=== PATIENT | female | born 1950 | race African-American/Black ===

== ENCOUNTER 2016-08-22 20:38 | Emergency (ER) | payer MEDICAID ==
[~2016-08-22] VITALS: Ht 162.6 cm; Wt 38.6 kg
[~2016-08-22 20:38] MED LIST: CIPRO500 MG PO; DILANTIN100 MG ORAL; ECOTRIN325 MG ORAL; HYDROCHLOROTH12.5 MG ORAL; KEPPRA LIQ100 MG/1 M NG; LEVETIRACETAM500 MG ORAL; MACROBID100 MG ORAL; METFORMIN HCL500 M1 ORAL; PHENYTOIN SODI100 MG PO; PHENYTOIN100 MG/4 M ORAL; POTASSIUM CHLO20 ME2 ORAL; PRO-AMATINE10 MG ORAL; UNOBMED
[2016-08-22] MEDS ORDERED: MEGESTROL ACETA20 MG ORAL (20:49)
[2016-08-22] MEDS ORDERED: LEVETIRACETAM250 MG PO (20:49)
[2016-08-22 20:53] VITALS: BP 135/95
--- NOTE | 2016-08-22 21:08 | Emergency Room Report ---
History of Present Illness General Chief Complaint: Syncope Source: EMS, Caregiver Present Illness HPI Patient presents with complaints of syncope with possible seizure activity Patient herself has developmental delay History present illness is limited secondary to that At this time denies any chest pain Denies any headache visual changes denies any back or flank pain denies any abdominal pain Patient is taking Dilantin however it is not clear of the patient's compliance No reports of any fevers Patient's family her reports seeing the patient have an initial syncopal episode After sitting the patient up, patient appeared to have another lapse of consciousness followed by questionable seizure activity Allergies: Coded Allergies: VANCOMYCIN (Verified Allergy, Intermediate, Hives, 10/31/15) SWELLING, ITCHING TOMATO (Verified Allergy, Unknown, 08/20/13) Patient History Limited by: medical condition Past Medical History: see triage record Pertinent Family History: none Last Menstrual Period: NONE Now: No Reviewed Nursing Documentation: PMH: Agreed, PSxH: Agreed Nursing Documentation-PMH Hx Cardiac Problems: Yes Hx Hypertension: Yes Hx Diabetes: Yes Hx Cancer: No Hx Gastrointestinal Problems: No History Of Psychiatric Problem: Yes - DEMENTIA, "MENTAL RETARDATION" Hx Neurological Problems: Yes - mental retardation Hx Seizures: Yes Hx Memory Loss: Yes Hx Syncope: Yes Review of Systems All Other Systems: limited - Other than the ones mentioned in the history of present illness all others are reviewed however they do stay limited due to the patient's mental status Physical Exam Vital Signs Date Time Temp Pulse Resp B/P Pulse Ox O2 Delivery O2 Flow Rate FiO2 08/22/16 20:43 97.0 87 18 135/95 99 Room Air Sp02 EP Interpretation: reviewed, normal General Appearance: no apparent distress Head: normocephalic, atraumatic Eyes: bilateral eye EOMI, bilateral eye PERRL ENT: hearing grossly normal, normal pharynx Neck: supple, thyroid normal Respiratory: lungs clear, normal breath sounds Cardiovascular #1: regular rate, rhythm, no edema Gastrointestinal: non tender, soft, no mass Genitourinary: no CVA tenderness Musculoskeletal: other - Deficit of the right upper extremity, hand flexed position Neurologic: alert, responsive Skin: normal color, no rash Lymphatic: no adenopathy Medical Decision Making Diagnostic Impression: Primary Impression: Syncope Additional Impressions: Syncopal seizure Developmental delay ER Course Patient is a fairly complex patient with multiple differential to consideration including but not limited to cardiac cardiopulmonary , intracranial and vascular emergencies Patient's CT head was negative Blood work reveals mildly subtherapeutic Dilantin level Patient also shows positive UTI These are addressed acutely in the emergency room Patient has remained seizure-free at this time secondary to insurance purposes is transferred for further inpatient care Labs Test 08/22/16 20:49 08/22/16 22:00 White Blood Count 5.3 K/UL (4.8-10.8) Red Blood Count 5.32 M/UL (4.20-5.40) Hemoglobin 17.1 G/DL (12.0-16.0) Hematocrit 48.4 % (37.0-47.0) Mean Corpuscular Volume 91 FL (80-99) Mean Corpuscular Hemoglobin 32.2 PG (27.0-31.0) Mean Corpuscular Hemoglobin Concent 35.4 G/DL (32.0-36.0) Red Cell Distribution Width 12.2 % (11.6-14.8) Platelet Count 176 K/UL (150-450) Mean Platelet Volume 7.6 FL (6.5-10.1) Neutrophils (%) (Auto) 57.1 % (45.0-75.0) Lymphocytes (%) (Auto) 33.8 % (20.0-45.0) Monocytes (%) (Auto) 6.3 % (1.0-10.0) Eosinophils (%) (Auto) 2.5 % (0.0-3.0) Basophils (%) (Auto) 0.4 % (0.0-2.0) Sodium Level 138 mEQ/L (135-145) Potassium Level 3.9 mEQ/L (3.4-4.9) Chloride Level 98 mEQ/L (98-107) Carbon Dioxide Level 26 mEQ/L (20-30) Anion Gap 14 (5-15) Blood Urea Nitrogen 16 mg/dL (7-23) Creatinine 0.9 mg/dL (0.5-0.9) Estimat Glomerular Filtration Rate > 60 mL/min (>60) Glucose Level 154 mg/dL (74-106) Calcium Level 9.4 mg/dL (8.6-10.2) Total Bilirubin < 0.2 mg/dL (0.0-1.2) Aspartate Amino Transf (AST/SGOT) 22 U/L (5-40) Alanine Aminotransferase (ALT/SGPT) 18 U/L (3-33) Alkaline Phosphatase 119 U/L (35-104) Total Creatine Kinase 56 U/L (26-140) Creatine Kinase MB < 1.5 ng/mL (< 3.8) Creatine Kinase MB Relative Index Troponin I < 0.30 ng/mL (<=0.30) Total Protein 7.9 g/dL (6.6-8.7) Albumin 4.3 g/dL (3.5-5.2) Globulin 3.6 g/dL Albumin/Globulin Ratio 1.1 (1.0-2.7) Phenytoin (Dilantin) Level 9.4 ug/mL (10-20) Urine Color Pale yellow Urine Appearance Slightly cloudy Urine pH 6 (4.5-8.0) Urine Specific [place] 1.010 (1.005-1.035) Urine Protein 1+ (NEGATIVE) Urine Glucose (UA) Negative (NEGATIVE) Urine Ketones Negative (NEGATIVE) Urine Occult Blood 2+ (NEGATIVE) Urine Nitrite Negative (NEGATIVE) Urine Bilirubin Negative (NEGATIVE) Urine Urobilinogen Normal MG/DL (0.0-1.0) Urine Leukocyte Esterase 3+ (NEGATIVE) Urine RBC 2-4 /HPF (0 - 2) Urine WBC 5-10 /HPF (0 - 2) Urine Squamous Epithelial Cells Few /LPF (NONE/OCC) Urine Bacteria Many /HPF (NONE) Urine Opiates Screen Negative (NEGATIVE) Urine Barbiturates Screen Negative (NEGATIVE) Phencyclidine (PCP) Screen Negative (NEGATIVE) Urine Amphetamines Screen Negative (NEGATIVE) Urine Benzodiazepines Screen Negative (NEGATIVE) Urine Cocaine Screen Negative (NEGATIVE) Urine Marijuana (THC) Screen Negative (NEGATIVE) Rhythm Strip Diag. Results EP Interpretation: yes Rate: 66 Rhythm: NSR, no PVC's, no ectopy Chest X-Ray Diagnostic Results EP Interpretation: Yes Findings: no consolidation, no effusion, no pneumothorax Number of Views: 1 CT/MRI/US Diagnostic Results CT/MRI/US Diagnostic Results : Impression CT head no acute disease Last Vital Signs Date Time Temp Pulse Resp B/P Pulse Ox O2 Delivery O2 Flow Rate FiO2 08/22/16 20:53 97.0 18 135/95 99 Room Air 08/22/16 20:43 87 Status: improved Disposition: XFER SHT-COUNTS INCLUDE 234 BEDS AT THE [facility] Condition: Improved LIEN ARANGO D.O. August 22, 2016 21:08
[2016-08-22 21:22] LABS: BASOPHILS % (AUTO) 0.4 % (0.0-2.0); EOSINOPHILS % (AUTO) 2.5 % (0.0-3.0); LYMPHOCYTES % (AUTO) 33.8 % (20.0-45.0); MEAN CORPUSCULAR HEMOGLOBIN 32.2 PG (27.0-31.0); MEAN CORPUSCULAR HGB CONC 35.4 G/DL (32.0-36.0); MEAN CORPUSCULAR VOLUME 91 FL (80-99); MEAN PLATELET VOLUME 7.6 FL (6.5-10.1); MONOCYTES % (AUTO) 6.3 % (1.0-10.0); NEUTROPHILS % (AUTO) 57.1 % (45.0-75.0); PLATELET COUNT 176 K/UL (150-450); RED BLOOD COUNT 5.32 M/UL (4.20-5.40); RED CELL DISTRIBUTION WIDTH 12.2 % (11.6-14.8); WHITE BLOOD COUNT 5.3 K/UL (4.8-10.8)
[2016-08-22 21:33] LABS: TROPONIN I < 0.30 ng/mL (<=0.30)
[2016-08-22 21:36] LABS: ALANINE AMINOTRANSFERASE 18 U/L (3-33); ALBUMIN/GLOBULIN RATIO 1.1 (1.0-2.7); ANION GAP 14 (5-15); ASPARTATE AMINO TRANSFERASE 22 U/L (5-40); CALCIUM 9.4 mg/dL (8.6-10.2); CARBON DIOXIDE 26 mEQ/L (20-30); CHLORIDE 98 mEQ/L (98-107); CREATININE 0.9 mg/dL (0.5-0.9); GLOMERULAR FILTRATION RATE > 60 mL/min (>60); HEMOLYSIS 2; POTASSIUM 3.9 mEQ/L (3.4-4.9); SODIUM 138 mEQ/L (135-145); TOTAL PROTEIN 7.9 g/dL (6.6-8.7)
[2016-08-22 21:46] LABS: CKMB < 1.5 ng/mL (< 3.8)
[2016-08-22 22:25] LABS: APPEARANCE,URINE SLIGHTLY CLOUDY; KETONES,URINE NEGATIVE (NEGATIVE); LEUKOCYTE ESTERASE ,URINE 3+ (NEGATIVE); NITRITE,URINE NEGATIVE (NEGATIVE); PH,URINE 6 (4.5-8.0); PROTEIN,URINE 1+ (NEGATIVE); UROBILINOGEN,URINE NORMAL MG/DL (0.0-1.0)
[2016-08-22] MEDS ORDERED: Phenytoin 250mg/5ml vial ONE (22:27)
[2016-08-22] MEDS ORDERED: Phenytoin 500 MG in NS 110 ML IVPB ONE (22:30)
[2016-08-22 22:39] VITALS: BP 137/78
[2016-08-22 22:51] LABS: BACTERIA,URINE MANY /HPF; SQUAMOUS EPITHELIAL CELL,UR FEW /LPF (NONE/OCC)
[2016-08-22] MEDS ORDERED: cefTRIAXone 1 GM in NS 55 ML IVPB ONE (23:00)
[2016-08-23 00:54] VITALS: BP 93/64
[2016-08-23 01:23] VITALS: BP 93/64
--- NOTE | 2016-08-23 09:24 | Diagnostic Imaging Report ---
Indications: Cephalgia, altered mental status Technique: Continuous helical CT imaging of the brain was performed with automatic exposure control on a Siemens sensation [address] scanner. Axial and coronal images were reconstructed at 5 mm slice thickness and interval. CTDI volume(s): 70 mGy Total DLP: 1383 mGy-cm Findings: Comparison: 09/26/15 Mild chronic microvascular ischemic changes in the bilateral cerebral periventricular white matter, diffuse atrophy are unchanged.. No evidence of mass or hemorrhage, other attenuation abnormality, mass effect, midline shift, hydrocephalus or increased intracranial pressure. Bone window images are unremarkable. Visualized paranasal sinuses and mastoid air cells are clear. IMPRESSION: No evidence of acute intracranial pathology, unchanged Stable chronic changes as described. Written preliminary report placed in PACS 08/22/[address] scanner at [facility] is accredited by the [employer] and the scans are performed using protocols designed to limit radiation exposure to as low as reasonably achievable to attain images of sufficient resolution adequate for diagnostic evaluation.
--- NOTE | 2016-08-23 09:26 | Diagnostic Imaging Report ---
Indications: Syncope Technique: Portable AP chest Findings: Comparison: 10/28/15 Cardiac silhouette remains normal in size. Central pulmonary as remain prominent. Peripheral vasculature remains within normal limits. Top of right lung apex excluded from image. Visualized portions of lungs and pleura remain clear. Mild elongation of the aortic arch is unchanged. IMPRESSION: No evidence of acute disease, with limitation as described, unchanged Stable chronic changes as described
== END 2016-08-23 01:30 | disposition short-term general hospital (02) ==
LOC: EDBD 20:38 → EMR 21:09
DX: R55 Syncope and collapse (principal); R62.50 Unspecified lack of expected normal physiological development in childhood; Z88.1 Allergy status to other antibiotic agents; Z86.79 Personal history of other diseases of the circulatory system; I10 Essential (primary) hypertension; F03.90 Unspecified dementia, unspecified severity, without behavioral disturbance, psychotic disturbance, mood disturbance, and anxiety; F79 Unspecified intellectual disabilities; R41.3 Other amnesia; R56.9 Unspecified convulsions
CPT/HCPCS: 36415; 70450; 71010; 80053; 80185; 80300; 81003; 82550; 82553; 84484; 85025; 87086; 87181; 93005; 96360; 96361; 99284; J0696; J1165

== ENCOUNTER 2017-09-04 21:54 | Inpatient (IN) | payer MEDICAID ==
[~2017-09-04] VITALS: Ht 160 cm; Wt 54.4 kg
[~2017-09-04 21:54] MED LIST changes: +CIPROFLOXACIN750 MG ORAL; +HYDROCHLOROTH12.5 M2 ORAL; +KEPPRA500 M3 ORAL; +LEVETIRACETAM250 MG PO; +MEGESTROL ACETA20 MG ORAL; +NITROFURANTOIN100 MG PO; +NOVOLOG100 UNITS1 SUBQ
[2017-09-04] MEDS ORDERED: PHENERGAN SUPP25 MG PO (21:57)
[2017-09-04] MEDS ORDERED: Cefepime HCl 1 GM in NS 55 ML IV SCH (22:15)
[2017-09-04] MEDS ORDERED: levETIRAcetam 500mg/NS100ml 100 ML IVPB ONE (22:15)
[2017-09-04 22:23] LABS: ANION GAP 7 mmol/L (5-15); BASOPHILS % (AUTO) 1.1 % (0.0-2.0); BLOOD UREA NITROGEN 11 mg/dL (7-18); CALCIUM 8.2 MG/DL (8.5-10.1); CARBON DIOXIDE 27 MMOL/L (21-32); CHLORIDE 103 MMOL/L (98-107); CREATININE 0.9 MG/DL (0.55-1.30); EOSINOPHILS % (AUTO) 2.3 % (0.0-3.0); HEMATOCRIT 42.2 % (37.0-47.0); HEMOGLOBIN 14.6 G/DL (12.0-16.0); MEAN CORPUSCULAR VOLUME 89 FL (80-99); MONOCYTES % (AUTO) 11.9 % (1.0-10.0); NEUTROPHILS % (AUTO) 64.6 % (45.0-75.0); PLATELET COUNT 156 K/UL (150-450); POTASSIUM 3.9 MMOL/L (3.5-5.1); RED BLOOD COUNT 4.74 M/UL (4.20-5.40); RED CELL DISTRIBUTION WIDTH 11.8 % (11.6-14.8); SODIUM 137 MMOL/L (136-145)
[2017-09-04 22:53] LABS: ASPARTATE AMINO TRANSFERASE 36 U/L (15-37); BILIRUBIN,TOTAL 0.3 MG/DL (0.2-1.0)
[2017-09-04 22:54] LABS: ALANINE AMINOTRANSFERASE 38 U/L (12-78); ALBUMIN 3.2 G/DL (3.4-5.0); ALBUMIN/GLOBULIN RATIO 0.8 (1.0-2.7); ALKALINE PHOSPHATASE 108 U/L (46-116); CKMB 0.5 NG/ML (0.0-3.6); CREATINE KINASE 151 U/L (26-140)
[2017-09-04 23:46] LABS: APPEARANCE,URINE CLEAR; BILIRUBIN, URINE NEGATIVE (NEGATIVE); COLOR,URINE PALE YELLOW; GLUCOSE, URINE (UA) NEGATIVE (NEGATIVE); KETONES,URINE NEGATIVE (NEGATIVE); LEUKOCYTE ESTERASE ,URINE 1+ (NEGATIVE); NITRITE,URINE NEGATIVE (NEGATIVE); PH,URINE 7 (4.5-8.0); PROTEIN,URINE NEGATIVE (NEGATIVE); UROBILINOGEN,URINE NORMAL MG/DL (0.0-1.0)
[2017-09-05] VITALS (7 sets, daily range): BP systolic 102–129; BP diastolic 67–81
--- NOTE | 2017-09-05 00:10 | Emergency Room Report ---
History of Present Illness General Chief Complaint: Seizure Source: Patient Present Illness HPI Patient is a 66-year-old female brought in by EMS after witnessed seizure. Patient prior history of seizure disorder. Patient had reportedly been having seizures since a child. The patient was noted to be chronic developmental delayed. Patient prior mental retardation history. The patient normally has petit mal seizures however today she had a grand mal seizure. Last one was approximately 6 months ago. The patient recent ICU admission for sepsis. The patient is normally ambulatory with assistance. Allergies: Coded Allergies: VANCOMYCIN (Verified Allergy, Intermediate, Hives, 10/31/15) SWELLING, ITCHING TOMATO (Verified Allergy, Unknown, 08/20/13) Patient History Past Medical History: see triage record Reviewed Nursing Documentation: PMH: Agreed; PSxH: Agreed Nursing Documentation-PMH Past Medical History: No History, Except For Hx Cardiac Problems: Yes Hx Hypertension: Yes Hx Diabetes: Yes Hx Cancer: No Hx Gastrointestinal Problems: No Hx Neurological Problems: Yes - mental retardation Hx Seizures: Yes Hx Memory Loss: Yes Hx Syncope: Yes Review of Systems All Other Systems: limited - by mental status Physical Exam Vital Signs Date Time Temp Pulse Resp B/P (MAP) Pulse Ox O2 Delivery O2 Flow Rate FiO2 09/04/17 21:48 119 14 116/68 98 Room Air 09/04/17 23:02 101.8 General Appearance: no apparent distress, alert, thin, Chronically Ill ENT: dry mucus membranes Neck: limited range of motion Respiratory: lungs clear, normal breath sounds, no rhonchi Cardiovascular #1: no edema, tachycardia Gastrointestinal: non tender, soft Musculoskeletal: decreased range of motion Neurologic: alert, motor weakness Skin: normal color, no rash Medical Decision Making Diagnostic Impression: Primary Impression: Development delay Additional Impressions: Sepsis Seizure disorder, generalized convulsive, intractable Subtherapeutic serum dilantin level ER Course Patient presented for seizure. Differential diagnosis included urinary infection, cysticercosis, electrolyte abnormality, mass lesion, or cranial hemorrhage.Because of complexity of patient's case laboratory testing and imaging studies were ordered. The patient was noted to have subtherapeutic Dilantin level. The patient was given IV Lasix and IV fluids due to possible sepsis. Urinalysis showed evidence of possible urinary infection. Dr. Imtiaz Arroyo was contacted for inpatient management Labs Test 09/04/17 21:59 6/6/18 23:30 White Blood Count 4.0 K/UL (4.8-10.8) Red Blood Count 4.74 M/UL (4.20-5.40) Hemoglobin 14.6 G/DL (12.0-16.0) Hematocrit 42.2 % (37.0-47.0) Mean Corpuscular Volume 89 FL (80-99) Mean Corpuscular Hemoglobin 30.8 PG (27.0-31.0) Mean Corpuscular Hemoglobin Concent 34.7 G/DL (32.0-36.0) Red Cell Distribution Width 11.8 % (11.6-14.8) Platelet Count 156 K/UL (150-450) Mean Platelet Volume 7.9 FL (6.5-10.1) Neutrophils (%) (Auto) 64.6 % (45.0-75.0) Lymphocytes (%) (Auto) 20.0 % (20.0-45.0) Monocytes (%) (Auto) 11.9 % (1.0-10.0) Eosinophils (%) (Auto) 2.3 % (0.0-3.0) Basophils (%) (Auto) 1.1 % (0.0-2.0) Sodium Level 137 MMOL/L (136-145) Potassium Level 3.9 MMOL/L (3.5-5.1) Chloride Level 103 MMOL/L (98-107) Carbon Dioxide Level 27 MMOL/L (21-32) Anion Gap 7 mmol/L (5-15) Blood Urea Nitrogen 11 mg/dL (7-18) Creatinine 0.9 MG/DL (0.55-1.30) Estimat Glomerular Filtration Rate > 60 mL/min (>60) Glucose Level 120 MG/DL (74-106) Lactic Acid Level 1.00 mmol/L (0.4-2.0) Calcium Level 8.2 MG/DL (8.5-10.1) Total Bilirubin 0.3 MG/DL (0.2-1.0) Aspartate Amino Transf (AST/SGOT) 36 U/L (15-37) Alanine Aminotransferase (ALT/SGPT) 38 U/L (12-78) Alkaline Phosphatase 108 U/L (46-116) Total Creatine Kinase 151 U/L (26-140) Creatine Kinase MB 0.5 NG/ML (0.0-3.6) Creatine Kinase MB Relative Index 0.3 Troponin I 0.003 ng/mL (0.000-0.056) Total Protein 7.3 G/DL (6.4-8.2) Albumin 3.2 G/DL (3.4-5.0) Globulin 4.1 g/dL Albumin/Globulin Ratio 0.8 (1.0-2.7) Phenytoin (Dilantin) Level 6.2 ug/mL (10-20) Phenobarbital Level < 1.0 ug/mL (15-40) Urine Color Pale yellow Urine Appearance Clear Urine pH 7 (4.5-8.0) Urine Specific [place] 1.005 (1.005-1.035) Urine Protein Negative (NEGATIVE) Urine Glucose (UA) Negative (NEGATIVE) Urine Ketones Negative (NEGATIVE) Urine Occult Blood Negative (NEGATIVE) Urine Nitrite Negative (NEGATIVE) Urine Bilirubin Negative (NEGATIVE) Urine Urobilinogen Normal MG/DL (0.0-1.0) Urine Leukocyte Esterase 1+ (NEGATIVE) Urine RBC 0 /HPF (0 - 2) Urine WBC 2-4 /HPF (0 - 2) Urine Squamous Epithelial Cells Few /LPF (NONE/OCC) Urine Bacteria Few /HPF (NONE) EKG Diagnostic Results Rate: tachycardiac Rhythm: NSR ST Segments: no acute changes Last Vital Signs Date Time Temp Pulse Resp B/P (MAP) Pulse Ox O2 Delivery O2 Flow Rate FiO2 09/04/17 23:02 101.8 09/04/17 22:16 119 14 Room Air 09/04/17 21:48 116/68 98 Status: unchanged Disposition: ADMITTED INPATIENT Condition: Serious Referrals: [facility],REFERRING (PCP) Rommel Crawford MD Sep 05, 2017 00:10
[2017-09-05] MEDS: NovoLOG Insulin Flexpen SUBQ SCH ×4 (06:30→21:00)
[2017-09-05] MEDS ORDERED: Norco 5mg/325mg tab ORAL PRN (06:45)
[2017-09-05] MEDS ORDERED: NS w/KCl 20mEq 1,000 ML IV ONE (06:45)
[2017-09-05 07:39] LABS: HEMATOCRIT 43.4 % (37.0-47.0); HEMOGLOBIN 14.9 G/DL (12.0-16.0); MEAN CORPUSCULAR VOLUME 91 FL (80-99); PLATELET COUNT 157 K/UL (150-450); RED BLOOD COUNT 4.77 M/UL (4.20-5.40); RED CELL DISTRIBUTION WIDTH 11.6 % (11.6-14.8); WHITE BLOOD COUNT 3.1 K/UL (4.8-10.8)
[2017-09-05 08:16] LABS: PHOSPHORUS 3.8 MG/DL (2.5-4.9)
--- NOTE | 2017-09-05 09:06 | Diagnostic Imaging Report ---
Indication: Shortness of breath Technique: One view of the chest Comparison: 08/22/2016 Findings: The lungs and pleural spaces are clear. Heart size is normal. The aorta is tortuous and ectatic. Again demonstrated is central bronchial wall thickening. Findings are unchanged Impression: No acute process
[2017-09-05] MEDS: Heparin 5000 units/ml inj SUBQ SCH ×2 (09:43→21:10)
--- NOTE | 2017-09-05 11:07 | Consultation ---
History of Present Illness General Date patient seen: Sep 05, 2017 Chief Complaint: Seizure Present Illness HPI 66-year-old female with prior history of seizure disorder, chronic developmental delaye brought in by EMS after witnessed seizure. The patient normally has petit mal seizures however today she had a grand mal seizure. Last one was approximately 6 months ago. Pt is admitted to telemetry for further management. Allergies: Coded Allergies: VANCOMYCIN (Verified Allergy, Intermediate, Hives, 10/31/15) SWELLING, ITCHING TOMATO (Verified Allergy, Unknown, 08/20/13) Medication History Scheduled Aspirin* (Ecotrin*), 325 MG ORAL DAILY, (Reported) Hydrochlorothiazide* (Hydrochlorothiazide*), 12.5 MG ORAL DAILY, (Reported) Hydrochlorothiazide* (Hydrochlorothiazide*), 12.5 MG ORAL DAILY, (Reported) Levetiracetam (Levetiracetam), 250 MG ORAL Q12HR Levetiracetam (Keppra), 1,000 MG NG Q12HR Levetiracetam (Levetiracetam), 250 MG PO BID, (Reported) Levetiracetam* (Levetiracetam*), 750 MG ORAL TWICE A DAY, (Reported) Metformin Hcl* (Metformin Hcl*), 500 MG ORAL TWICE A DAY, (Reported) Metformin Hcl* (Metformin Hcl*), 500 MG ORAL TWICE A DAY, (Reported) Midodrine (Midodrine HCl), 10 MG ORAL THREE TIMES A DAY Phenytoin (Phenytoin*), 100 MG ORAL TID, (Reported) Phenytoin Sodium Extended* (Dilantin*), 300 MG ORAL BEDTIME Phenytoin Sodium Extended* (Dilantin*), 300 MG ORAL BEDTIME, (Reported) Potassium Chloride (Potassium Chloride), 10 MEQ ORAL DAILY, (Reported) Scheduled PRN Promethazine HCl (Promethegan), 5 ML PO Q6H PRN for Nausea & Vomiting, (Reported ) Miscellaneous Medications Megestrol Acetate (Megestrol Acetate), 20 MG ORAL, (Reported) Unable to Obtain Medications (Unable To Obtain Meds), (Reported) Patient History Healthcare decision maker Razia caregiver Resuscitation status Advanced Directive on File No Past Medical/Surgical History Past Medical/Surgical History: (1) Seizure (2) CAD (coronary artery disease) (3) HTN (hypertension) (4) DM (diabetes mellitus) (5) Developmental delay (6) chronic partial complex seizure d/o, exacerbation Review of Systems All Other Systems: negative except mentioned in HPI Physical Exam General Appearance: WD/WN Lines, tubes and drains: peripheral HEENT: normocephalic Neck: non-tender, normal alignment Respiratory/Chest: chest wall non-tender, lungs clear Cardiovascular/Chest: normal peripheral pulses, normal rate Abdomen: normal bowel sounds Genitourinary/Rectal: normal genital exam Extremities: normal range of motion Skin Exam: normal pigmentation 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 Last 24 Hour Vital Signs Date Time Temp Pulse Resp B/P (MAP) Pulse Ox O2 Delivery O2 Flow Rate FiO2 09/05/17 04:00 81 09/05/17 04:00 97.8 80 20 102/68 100 Room Air 97.8 85 09/05/17 01:15 97.8 100 20 127/67 100 Room Air 97.8 09/05/17 00:59 100.0 14 116/68 98 Room Air 100.0 09/05/17 00:29 100.0 14 116/68 98 Room Air 100.0 09/04/17 23:02 101.8 09/04/17 22:16 119 14 Room Air 09/04/17 21:48 119 14 116/68 98 Room Air Intake and Output 09/04/17 09/05/17 19:00 07:00 Intake Total 0 ml Balance 0 ml Intake Oral 0 ml Laboratory Tests Test 09/04/17 21:59 09/04/17 23:30 09/05/17 07:30 White Blood Count 4.0 K/UL (4.8-10.8) L 3.1 K/UL (4.8-10.8) L Red Blood Count 4.74 M/UL (4.20-5.40) 4.77 M/UL (4.20-5.40) Hemoglobin 14.6 G/DL (12.0-16.0) 14.9 G/DL (12.0-16.0) Hematocrit 42.2 % (37.0-47.0) 43.4 % (37.0-47.0) Mean Corpuscular Volume 89 FL (80-99) 91 FL (80-99) Mean Corpuscular Hemoglobin 30.8 PG (27.0-31.0) 31.2 PG (27.0-31.0) H Mean Corpuscular Hemoglobin Concent 34.7 G/DL (32.0-36.0) 34.3 G/DL (32.0-36.0) Red Cell Distribution Width 11.8 % (11.6-14.8) 11.6 % (11.6-14.8) Platelet Count 156 K/UL (150-450) 157 K/UL (150-450) Mean Platelet Volume 7.9 FL (6.5-10.1) 5.7 FL (6.5-10.1) L Neutrophils (%) (Auto) 64.6 % (45.0-75.0) % (45.0-75.0) Lymphocytes (%) (Auto) 20.0 % (20.0-45.0) % (20.0-45.0) Monocytes (%) (Auto) 11.9 % (1.0-10.0) H % (1.0-10.0) Eosinophils (%) (Auto) 2.3 % (0.0-3.0) % (0.0-3.0) Basophils (%) (Auto) 1.1 % (0.0-2.0) % (0.0-2.0) Sodium Level 137 MMOL/L (136-145) Potassium Level 3.9 MMOL/L (3.5-5.1) Chloride Level 103 MMOL/L (98-107) Carbon Dioxide Level 27 MMOL/L (21-32) Anion Gap 7 mmol/L (5-15) Blood Urea Nitrogen 11 mg/dL (7-18) Creatinine 0.9 MG/DL (0.55-1.30) Estimat Glomerular Filtration Rate > 60 mL/min (>60) Glucose Level 120 MG/DL (74-106) H Lactic Acid Level 1.00 mmol/L (0.4-2.0) Calcium Level 8.2 MG/DL (8.5-10.1) L Total Bilirubin 0.3 MG/DL (0.2-1.0) Aspartate Amino Transf (AST/SGOT) 36 U/L (15-37) Alanine Aminotransferase (ALT/SGPT) 38 U/L (12-78) Alkaline Phosphatase 108 U/L (46-116) Total Creatine Kinase 151 U/L (26-140) H Creatine Kinase MB 0.5 NG/ML (0.0-3.6) Creatine Kinase MB Relative Index 0.3 Troponin I 0.003 ng/mL (0.000-0.056) Total Protein 7.3 G/DL (6.4-8.2) Albumin 3.2 G/DL (3.4-5.0) L Globulin 4.1 g/dL Albumin/Globulin Ratio 0.8 (1.0-2.7) L Phenytoin (Dilantin) Level 6.2 ug/mL (10-20) L Phenobarbital Level < 1.0 ug/mL (15-40) L Urine Color Pale yellow Urine Appearance Clear Urine pH 7 (4.5-8.0) Urine Specific [place] 1.005 (1.005-1.035) Urine Protein Negative (NEGATIVE) Urine Glucose (UA) Negative (NEGATIVE) Urine Ketones Negative (NEGATIVE) Urine Occult Blood Negative (NEGATIVE) Urine Nitrite Negative (NEGATIVE) Urine Bilirubin Negative (NEGATIVE) Urine Urobilinogen Normal MG/DL (0.0-1.0) Urine Leukocyte Esterase 1+ (NEGATIVE) H Urine RBC 0 /HPF (0 - 2) Urine WBC 2-4 /HPF (0 - 2) Urine Squamous Epithelial Cells Few /LPF (NONE/OCC) Urine Bacteria Few /HPF (NONE) Differential Total Cells Counted 100 Neutrophils % (Manual) 65 % (45-75) Lymphocytes % (Manual) 27 % (20-45) Monocytes % (Manual) 8 % (1-10) Eosinophils % (Manual) 0 % (0-3) Basophils % (Manual) 0 % (0-2) Band Neutrophils 0 % (0-8) Platelet Estimate Adequate Platelet Morphology Normal Red Blood Cell Morphology Normal Phosphorus Level 3.8 MG/DL (2.5-4.9) Magnesium Level 1.9 MG/DL (1.8-2.4) Pro-B-Type Natriuretic Peptide 95 pg/mL (0-125) Height (Feet): 5 Height (Inches): 3.00 Weight (Pounds): 120 Medications Current Medications Medications (Trade) Dose Ordered Sig/Blanca Route PRN Reason Start Time Stop Time Status Last Admin Dose Admin Acetaminophen (Tylenol) 650 mg Q6H PRN ORAL Mild Pain/Temp > 100.5 09/05/17 06:45 10/05/17 06:44 Acetaminophen/ Hydrocodone Bitart ([place] 5/325) 1 tab Q6H PRN ORAL Severe Pain (Pain Scale 7-10) 09/05/17 06:45 09/12/17 06:44 Cefepime HCl 1 gm/ Dextrose 110 ml @ 220 mls/hr Q24H IVPB 09/05/17 23:00 09/12/17 22:59 Dextrose (Dextrose 50%) 25 ml STAT PRN IV Hypoglycemia 09/05/17 06:30 10/05/17 06:29 Dextrose (Dextrose 50%) 50 ml STAT PRN IV Hypoglycemia 09/05/17 06:30 10/05/17 06:29 Heparin Sodium (Porcine) (Heparin 5000 units/ml) 5,000 units EVERY 12 HOURS SUBQ 09/05/17 09:00 10/05/17 08:59 09/05/17 09:43 Insulin Aspart (NovoLOG) BEFORE MEALS AND HS SUBQ 09/05/17 06:30 10/05/17 06:29 Levetiracetam (Keppra) 1,000 mg Q12HR ORAL 09/05/17 09:00 10/05/17 08:59 09/05/17 09:38 Ondansetron HCl (Zofran) 4 mg Q4H PRN IVP Nausea & Vomiting 09/05/17 06:45 10/05/17 06:44 Phenytoin (Dilantin) 400 mg BEDTIME ORAL 09/05/17 21:00 10/05/17 20:59 Sodium Chloride 1,000 ml @ 75 mls/hr [id number] ONCE IV 09/05/17 06:45 09/05/17 20:04 09/05/17 09:51 Assessment/Plan Problem List: (1) Seizure disorder, generalized convulsive, intractable ICD Codes: G40.319 - Generalized idiopathic epilepsy and epileptic syndromes, intractable, without status epilepticus SNOMED: 62048252 (2) chronic partial complex seizure d/o, exacerbation (3) Developmental delay ICD Codes: R62.50 - Unspecified lack of expected normal physiological development in childhood SNOMED: 706366173 (4) DM (diabetes mellitus) ICD Codes: E11.9 - DM (diabetes mellitus) SNOMED: 35051796 (5) HTN (hypertension) ICD Codes: I10 - HTN (hypertension) SNOMED: 49340635 (6) CAD (coronary artery disease) ICD Codes: I25.10 - Atherosclerotic heart disease of [place] coronary artery without angina pectoris SNOMED: 63175557 Assessment/Plan seizure precaution neuro evaluation adjust meds sliding scale diabetic diet. Juliette Bustos MD Sep 05, 2017 11:07
--- NOTE | 2017-09-05 18:25 | History & Physical ---
History and Physical History & Physicial Dictated for Int med-Dr Arroyo no. [id number]. Tam Toscano MD Sep 05, 2017 18:25
--- NOTE | 2017-09-05 19:45 | History and Physical Report ---
DATE OF ADMISSION: 09/04/2017 CHIEF COMPLAINT: The patient is a 66-year-old, female, who presents with chief complaint of seizure. HISTORY OF PRESENT ILLNESS: The patient has a history of absence seizures. The patient herself has a history of mental retardation and is unable to contribute much to the history. Much of the history is taken from the patient's caregiver, Karen Madison, who is at the bedside. According to the patient's cousin, she had an absence seizure last evening, 09/04/2017. The patient eyes rolled back in her head. EMS was called. The patient was postictal afterwards. The patient was transported to [facility] emergency room. The patient was admitted for breakthrough seizure. PAST MEDICAL HISTORY: Significant for, 1. Absence seizure disorder. 2. Mental retardation. 3. Diabetes type 2. 4. Hypertension. PAST SURGICAL HISTORY: The patient denies. CURRENT MEDICATIONS: 1. Keppra 1000 mg one tablet p.o. twice daily. 2. Dilantin 100 mg 3 tablets p.o. at bedtime. 3. Metformin 500 mg one tablet p.o. twice daily. 4. Hydrochlorothiazide 12.5 mg p.o. daily. ALLERGIES: Vancomycin. SOCIAL HISTORY: The patient is single. The patient lives at home with her caregiver. The patient denies tobacco or alcohol use. REVIEW OF SYSTEMS: Unable to assess secondary to the patient's mental status. PHYSICAL EXAMINATION: GENERAL: The patient is a well-developed, well-nourished, female, who is nonverbal. VITAL SIGNS: Temperature low-grade fever of 100.0 degrees, respirations 14, blood pressure 116/68, and pulse 100. HEENT: Pupils equal and responsive to light and accommodation. Extraocular movements are intact. NECK: Supple without lymphadenopathy. CHEST: Lungs are clear to auscultation bilaterally without wheezes or rales. CARDIOVASCULAR: Regular rhythm and rate. S1 and S2 are normal without murmurs, rubs, or gallops. ABDOMEN: Soft, nontender, and nondistended. Positive bowel sounds. No evidence of hepatosplenomegaly. Currently, no rebound or guarding noted. EXTREMITIES: Negative for clubbing, cyanosis, or edema. RECTAL/GENITAL: Refused. NEUROLOGIC: Cranial nerves II through XII are grossly intact without focal deficits. Motor strength is 5/5 bilaterally. Deep tendon reflexes are 2+ plantar. LABORATORY AND DIAGNOSTIC DATA: WBC 4.3, hemoglobin 13.6, hematocrit 42.2 and platelets 156,000. Sodium 137, potassium 3.9, chloride 103, CO2 27, BUN 11, creatinine 0.9 and glucose 120. Dilantin level was subtherapeutic at 6.2. An initial chest x-ray was reported as no acute disease. ASSESSMENT: This is a 66-year-old, female, 1. Breakthrough seizure. 2. Postictal. 3. Diabetes type 2. 4. Hypertension. TREATMENT: 1. Seizure/postictal. A Neurology consultation has been obtained with Dr. Jun Aguilar. Restart Keppra and Dilantin as above. We will follow recommendations of Neurology. 2. Diabetes type 2. Dosages may need to be adjusted as the Dilantin was subtherapeutic. We will follow recommendations of Neurology. 3. Diabetes type 2. The patient has been placed on NovoLog sliding scale. Continue metformin as above. 4. Hypertension. Continue hydrochlorothiazide as above. Tam Toscano M.D. DR: YAKELIN JOB#: [id number] CC:
[2017-09-05] MEDS ORDERED: Phenytoin 100mg cap ORAL SCH (21:00)
[2017-09-05] MEDS ORDERED: Cefepime HCl 1 GM in D5W 55 ML IVPB SCH (23:00)
[2017-09-05] MEDS ORDERED: Cefepime HCl 1 GM in D5W 110 ML IVPB SCH (23:00)
[2017-09-06] VITALS (7 sets, daily range): BP systolic 94–146; BP diastolic 64–95
[2017-09-06] MEDS: NovoLOG Insulin Flexpen SUBQ SCH ×4 (06:30→21:46)
[2017-09-06 07:44] LABS: ANION GAP 6 mmol/L (5-15); BLOOD UREA NITROGEN 8 mg/dL (7-18); CALCIUM 8.2 MG/DL (8.5-10.1); CARBON DIOXIDE 27 MMOL/L (21-32); CHLORIDE 107 MMOL/L (98-107); CREATININE 0.7 MG/DL (0.55-1.30); POTASSIUM 3.9 MMOL/L (3.5-5.1); SODIUM 140 MMOL/L (136-145)
[2017-09-06 07:52] LABS: HEMATOCRIT 38.7 % (37.0-47.0); HEMOGLOBIN 13.5 G/DL (12.0-16.0); MEAN CORPUSCULAR VOLUME 90 FL (80-99); PLATELET COUNT 150 K/UL (150-450); RED BLOOD COUNT 4.28 M/UL (4.20-5.40); RED CELL DISTRIBUTION WIDTH 11.6 % (11.6-14.8); WHITE BLOOD COUNT 2.5 K/UL (4.8-10.8)
[2017-09-06] MEDS: Heparin 5000 units/ml inj SUBQ SCH ×2 (08:47→21:00)
--- NOTE | 2017-09-06 12:33 | Cardiology Report ---
APPROVED REPORT EKG Measurement Heart [id number] Sinus tachycardia Left axis deviation Low voltage QRS Right bundle branch block Possible Lateral infarct, age undetermined Abnormal ECG
--- NOTE | 2017-09-06 13:26 | Pulmonology Progress Note ---
Assessment/Plan Problems: (1) Fever (2) Sepsis (3) Seizure disorder, generalized convulsive, intractable (4) chronic partial complex seizure d/o, exacerbation (5) Developmental delay (6) DM (diabetes mellitus) (7) HTN (hypertension) (8) CAD (coronary artery disease) Assessment/Plan denson culture IV abx check wbc sliding scale diabetic diet ID evaluation med/surg no more seizures. Subjective ROS Limited/Unobtainable: No Interval Events: awake, comfortable Allergies: Coded Allergies: VANCOMYCIN (Verified Allergy, Intermediate, Hives, 10/31/15) SWELLING, ITCHING TOMATO (Verified Allergy, Unknown, 08/20/13) Objective Last 24 Hour Vital Signs Date Time Temp Pulse Resp B/P (MAP) Pulse Ox O2 Delivery O2 Flow Rate FiO2 09/06/17 08:00 97.7 90 18 119/75 99 Room Air 97.7 09/06/17 08:00 96 09/06/17 04:00 81 09/06/17 04:00 97.7 93 20 108/74 100 Room Air 97.7 09/06/17 00:00 100 09/06/17 00:00 98.1 97 20 117/77 97 Room Air 98.1 09/05/17 20:00 102 09/05/17 20:00 100.8 103 20 129/81 98 Room Air 100.8 09/05/17 16:00 97.5 106 20 126/72 97 Room Air 97.5 09/05/17 16:00 103 Intake and Output 09/05/17 09/06/17 19:00 07:00 Intake Total 800 ml Balance 800 ml Intake Oral 800 ml # Bowel Movements 1 1 General Appearance: cachetic HEENT: normocephalic, atraumatic Respiratory/Chest: chest wall non-tender, lungs clear Breasts: no masses Cardiovascular: normal peripheral pulses, normal rate Abdomen: normal bowel sounds, soft, non tender Genitourinary: normal external genitalia Extremities: no cyanosis Skin: no rash 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 normal Microbiology Date/Time Source Procedure Growth Status 09/04/17 22:00 Blood Blood Culture - Preliminary Resulted 09/04/17 21:49 Blood Blood Culture - Preliminary Resulted Laboratory Tests 09/06/17 07:00: White Blood Count 2.5L, Red Blood Count 4.28, Hemoglobin 13.5, Hematocrit 38.7, Mean Corpuscular Volume 90, Mean Corpuscular Hemoglobin 31.5H, Mean Corpuscular Hemoglobin Concent 34.8, Red Cell Distribution Width 11.6, Platelet Count 150, Mean Platelet Volume 7.1, Neutrophils (%) (Auto) , Lymphocytes (%) (Auto) , Monocytes (%) (Auto) , Eosinophils (%) (Auto) , Basophils (%) (Auto) , Differential Total Cells Counted 100, Neutrophils % (Manual) 42L, Lymphocytes % (Manual) 42, Monocytes % (Manual) 9, Eosinophils % (Manual) 7H, Basophils % ( Manual) 0, Band Neutrophils 0, Platelet Estimate Adequate, Platelet Morphology Normal, Anisocytosis 1+, Sodium Level 140, Potassium Level 3.9, Chloride Level 107, Carbon Dioxide Level 27, Anion Gap 6, Blood Urea Nitrogen 8, Creatinine 0.7 , Estimat Glomerular Filtration Rate > 60, Glucose Level 90, Calcium Level 8.2L , Phenytoin (Dilantin) Level 9.7L, Levetiracetam (Keppra) Level [Pending] Current Medications Medications (Trade) Dose Ordered Sig/Blanca Route PRN Reason Start Time Stop Time Status Last Admin Dose Admin Acetaminophen (Tylenol) 650 mg Q6H PRN ORAL Mild Pain/Temp > 100.5 09/05/17 06:45 10/05/17 06:44 Acetaminophen/ Hydrocodone Bitart ([place] 5/325) 1 tab Q6H PRN ORAL Severe Pain (Pain Scale 7-10) 09/05/17 06:45 09/12/17 06:44 Cefepime HCl 1 gm/ Dextrose 110 ml @ 220 mls/hr Q24H IVPB 09/05/17 23:00 09/12/17 22:59 09/05/17 23:00 Dextrose (Dextrose 50%) 25 ml STAT PRN IV Hypoglycemia 09/05/17 06:30 10/05/17 06:29 Dextrose (Dextrose 50%) 50 ml STAT PRN IV Hypoglycemia 09/05/17 06:30 10/05/17 06:29 Heparin Sodium (Porcine) (Heparin 5000 units/ml) 5,000 units EVERY 12 HOURS SUBQ 09/05/17 09:00 10/05/17 08:59 09/06/17 08:47 Insulin Aspart (NovoLOG) BEFORE MEALS AND HS SUBQ 09/05/17 06:30 10/05/17 06:29 Levetiracetam (Keppra) 1,000 mg Q12HR ORAL 09/05/17 09:00 10/05/17 08:59 09/06/17 08:46 Ondansetron HCl (Zofran) 4 mg Q4H PRN IVP Nausea & Vomiting 09/05/17 06:45 10/05/17 06:44 Phenytoin (Dilantin) 400 mg BEDTIME ORAL 09/05/17 21:00 10/05/17 20:59 09/05/17 21:05 Juliette Bustos MD Sep 06, 2017 13:26
--- NOTE | 2017-09-06 16:44 | Internal Med Progress Note ---
Subjective Date of Service: Sep 06, 2017 Physician Name Tam Toscano Attending Physician Imtiaz Arroyo MD Current Medications Medications (Trade) Dose Ordered Sig/Blanca Route PRN Reason Start Time Stop Time Status Last Admin Dose Admin Acetaminophen (Tylenol) 650 mg Q6H PRN ORAL Mild Pain/Temp > 100.5 09/05/17 06:45 10/05/17 06:44 Acetaminophen/ Hydrocodone Bitart ([place] 5/325) 1 tab Q6H PRN ORAL Severe Pain (Pain Scale 7-10) 09/05/17 06:45 09/12/17 06:44 Cefepime HCl 1 gm/ Dextrose 110 ml @ 220 mls/hr Q24H IVPB 09/05/17 23:00 09/12/17 22:59 09/05/17 23:00 Daptomycin 350 mg/ Sodium Chloride 55 ml @ 110 mls/hr Q24H IV 09/06/17 17:00 09/13/17 16:59 Dextrose (Dextrose 50%) 25 ml STAT PRN IV Hypoglycemia 09/05/17 06:30 10/05/17 06:29 Dextrose (Dextrose 50%) 50 ml STAT PRN IV Hypoglycemia 09/05/17 06:30 10/05/17 06:29 Heparin Sodium (Porcine) (Heparin 5000 units/ml) 5,000 units EVERY 12 HOURS SUBQ 09/05/17 09:00 10/05/17 08:59 09/06/17 08:47 Insulin Aspart (NovoLOG) BEFORE MEALS AND HS SUBQ 09/05/17 06:30 10/05/17 06:29 Levetiracetam (Keppra) 1,000 mg Q12HR ORAL 09/05/17 09:00 10/05/17 08:59 09/06/17 08:46 Ondansetron HCl (Zofran) 4 mg Q4H PRN IVP Nausea & Vomiting 09/05/17 06:45 10/05/17 06:44 Phenytoin (Dilantin) 400 mg BEDTIME ORAL 09/05/17 21:00 10/05/17 20:59 09/05/17 21:05 Allergies: Coded Allergies: VANCOMYCIN (Verified Allergy, Intermediate, Hives, 10/31/15) SWELLING, ITCHING TOMATO (Verified Allergy, Unknown, 08/20/13) ROS Limited/Unobtainable: Yes Constitutional: Reports: no symptoms HEENT: Reports: no symptoms Cardiovascular: Reports: no symptoms Respiratory: Reports: no symptoms Gastrointestinal/Abdominal: Reports: no symptoms Genitourinary: Reports: no symptoms Neurologic/Psychiatric: Reports: no symptoms Subjective 66 YO F admitted with seizure. Cover for Int Med-Dr Arroyo. C/O cough. Objective Last Vital Signs Date Time Temp Pulse Resp B/P (MAP) Pulse Ox O2 Delivery O2 Flow Rate FiO2 09/06/17 16:00 98.4 103 20 146/64 99 Room Air 98.4 General Appearance: WD/WN, no apparent distress, alert EENT: PERRL/EOMI, normal ENT inspection Neck: non-tender, normal alignment, supple, normal inspection Cardiovascular: normal peripheral pulses, normal rate, regular rhythm, no gallop/murmur, no JVD Respiratory/Chest: chest wall non-tender, lungs clear, normal breath sounds, no respiratory distress, no accessory muscle use Abdomen: normal bowel sounds, non tender, soft, no organomegaly, no mass Extremities: normal range of motion, non-tender 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, no motor/sensory deficits Skin: normal pigmentation, warm/dry Laboratory Tests Test 09/06/17 07:00 White Blood Count 2.5 K/UL (4.8-10.8) L Red Blood Count 4.28 M/UL (4.20-5.40) Hemoglobin 13.5 G/DL (12.0-16.0) Hematocrit 38.7 % (37.0-47.0) Mean Corpuscular Volume 90 FL (80-99) Mean Corpuscular Hemoglobin 31.5 PG (27.0-31.0) H Mean Corpuscular Hemoglobin Concent 34.8 G/DL (32.0-36.0) Red Cell Distribution Width 11.6 % (11.6-14.8) Platelet Count 150 K/UL (150-450) Mean Platelet Volume 7.1 FL (6.5-10.1) Neutrophils (%) (Auto) % (45.0-75.0) Lymphocytes (%) (Auto) % (20.0-45.0) Monocytes (%) (Auto) % (1.0-10.0) Eosinophils (%) (Auto) % (0.0-3.0) Basophils (%) (Auto) % (0.0-2.0) Differential Total Cells Counted 100 Neutrophils % (Manual) 42 % (45-75) L Lymphocytes % (Manual) 42 % (20-45) Monocytes % (Manual) 9 % (1-10) Eosinophils % (Manual) 7 % (0-3) H Basophils % (Manual) 0 % (0-2) Band Neutrophils 0 % (0-8) Platelet Estimate Adequate Platelet Morphology Normal Anisocytosis 1+ Sodium Level 140 MMOL/L (136-145) Potassium Level 3.9 MMOL/L (3.5-5.1) Chloride Level 107 MMOL/L (98-107) Carbon Dioxide Level 27 MMOL/L (21-32) Anion Gap 6 mmol/L (5-15) Blood Urea Nitrogen 8 mg/dL (7-18) Creatinine 0.7 MG/DL (0.55-1.30) Estimat Glomerular Filtration Rate > 60 mL/min (>60) Glucose Level 90 MG/DL (74-106) Calcium Level 8.2 MG/DL (8.5-10.1) L Phenytoin (Dilantin) Level 9.7 ug/mL (10-20) L Levetiracetam (Keppra) Level Pending Microbiology Date/Time Source Procedure Growth Status 09/04/17 22:00 Blood Blood Culture - Preliminary Resulted 09/04/17 21:49 Blood Blood Culture - Preliminary Resulted Intake and Output 09/05/17 09/06/17 19:00 07:00 Intake Total 800 ml Balance 800 ml Intake Oral 800 ml # Bowel Movements 1 1 Assessment/Plan Problem List: (1) Bronchitis Assessment & Plan: Continue cefepime and daptomycin per pulmonary (2) Diabetes mellitus, type II Assessment & Plan: Continue novolog sliding scale. (3) Fever Assessment & Plan: Continue cefepime and daptomycin (4) Seizures Assessment & Plan: See neurology note. Continue keppra and dilantin (5) HTN (hypertension) Status: progressing Tam Toscano MD Sep 06, 2017 16:44
[2017-09-06] MEDS ORDERED: Albuterol ud Inhalation HHN PRN (16:45)
[2017-09-06] MEDS ORDERED: DAPTOmycin 350 MG in NS 55 ML IV SCH (17:00)
[2017-09-06] MEDS: Phenytoin 100mg cap ORAL SCH (21:24)
[2017-09-06] MEDS: Cefepime HCl 1 GM in D5W 110 ML IVPB SCH (22:58)
[2017-09-07] MEDS ORDERED: Norco 5mg/325mg tab ORAL PRN (00:45)
[2017-09-07] MEDS ORDERED: Albuterol ud Inhalation HHN PRN (00:45)
[2017-09-07 04:00] VITALS: BP 105/67
[2017-09-07] MEDS: NovoLOG Insulin Flexpen SUBQ SCH ×4 (06:01→20:27)
--- NOTE | 2017-09-07 07:22 | Pulmonology Progress Note ---
Assessment/Plan Assessment/Plan ASSESSMENT breakthrough seizures with history of seizure disorder Developmental delay Acute encephalopathy secondary to breakthrough seizure likely viral infection possible acute bronchitis Hypertension Diabetes gram positive bacteremia possible sepsis PLAN OF CARE MS floor high grade bacteremia, 4/4 on empiric Dapto and Cefepime ( allergic to vanco) ID consult CXR negative, UA negative O2 HHN prn get ECHO- r/o SBE neuro consult seizure precautions continue Keppra and Dilantin BP management blood sugar management with sliding scale insulin DVT prophylaxis PT/OT symptomatic care case discussed and evaluated by supervising physician Subjective Allergies: Coded Allergies: VANCOMYCIN (Verified Allergy, Intermediate, Hives, 10/31/15) SWELLING, ITCHING TOMATO (Verified Allergy, Unknown, 08/20/13) Subjective afebrile, leukopenic no further seizure activity bacteremia 4/4 GPC Objective Last 24 Hour Vital Signs Date Time Temp Pulse Resp B/P (MAP) Pulse Ox O2 Delivery O2 Flow Rate FiO2 09/07/17 04:00 97.3 99 19 105/67 99 Room Air 97.3 09/06/17 21:00 97.7 102 18 136/95 100 Room Air 97.7 09/06/17 20:00 99.3 105 18 94/64 96 Room Air 99.3 09/06/17 16:00 98.4 103 20 146/64 99 Room Air 98.4 09/06/17 16:00 96 09/06/17 12:00 92 09/06/17 12:00 97.7 88 18 103/68 99 Room Air 97.7 09/06/17 08:00 97.7 90 18 119/75 99 Room Air 97.7 09/06/17 08:00 96 Intake and Output 09/06/17 09/07/17 19:00 07:00 Intake Total 840 ml 460 ml Balance 840 ml 460 ml Intake Oral 840 ml 240 ml IV Total 220 ml # Voids 5 2 # Bowel Movements 2 1 General Appearance: no acute distress HEENT: normocephalic, atraumatic, anicteric, mucous membranes moist Respiratory/Chest: lungs clear, no accessory muscle use Cardiovascular: normal peripheral pulses, normal rate Abdomen: soft, non tender Extremities: no edema, pedal pulses normal Neurologic/Psychiatric: alert, responsive Musculoskeletal: normal muscle bulk Microbiology Date/Time Source Procedure Growth Status 09/04/17 22:00 Blood Blood Culture - Preliminary Resulted 09/04/17 21:49 Blood Blood Culture - Preliminary Resulted Current Medications Medications (Trade) Dose Ordered Sig/Blanca Route PRN Reason Start Time Stop Time Status Last Admin Dose Admin Acetaminophen (Tylenol) 650 mg Q6H PRN ORAL Mild Pain/Temp > 100.5 09/07/17 00:45 10/05/17 06:44 Acetaminophen/ Hydrocodone Bitart ([place] 5/325) 1 tab Q6H PRN ORAL Severe Pain (Pain Scale 7-10) 09/07/17 00:45 09/12/17 06:44 Albuterol Sulfate (Proventil) 2.5 mg Q4H PRN HHN For Cough 09/07/17 00:45 09/11/17 16:44 Cefepime HCl 1 gm/ Dextrose 110 ml @ 220 mls/hr Q24H IVPB 09/06/17 23:00 09/12/17 22:59 09/06/17 22:58 Daptomycin 350 mg/ Sodium Chloride 55 ml @ 110 mls/hr Q24H IV 09/07/17 17:00 09/13/17 16:59 Dextrose (Dextrose 50%) 25 ml STAT PRN IV Hypoglycemia 09/07/17 06:30 10/05/17 06:29 Dextrose (Dextrose 50%) 50 ml STAT PRN IV Hypoglycemia 09/07/17 06:30 10/05/17 06:29 Heparin Sodium (Porcine) (Heparin 5000 units/ml) 5,000 units EVERY 12 HOURS SUBQ 09/06/17 21:00 10/05/17 08:59 Insulin Aspart (NovoLOG) BEFORE MEALS AND HS SUBQ 09/06/17 21:00 10/05/17 06:29 09/06/17 21:46 Levetiracetam (Keppra) 1,000 mg Q12HR ORAL 09/06/17 21:00 10/05/17 08:59 09/06/17 21:24 Ondansetron HCl (Zofran) 4 mg Q4H PRN IVP Nausea & Vomiting 09/06/17 22:45 10/05/17 06:44 Phenytoin (Dilantin) 400 mg BEDTIME ORAL 09/06/17 21:00 10/05/17 20:59 09/06/17 21:24 Radha Ann PICK UP WORKER Sep 07, 2017 07:22
[2017-09-07 08:00] VITALS: BP 93/60
[2017-09-07] MEDS: Heparin 5000 units/ml inj SUBQ SCH ×2 (09:03→20:26)
[2017-09-07] MEDS ORDERED: Tubing IV Secondary IV ONE (10:39)
[2017-09-07] MEDS ORDERED: NS 500ML ONE (10:39)
[2017-09-07 10:49] LABS: HEMATOCRIT 45.8 % (37.0-47.0); HEMOGLOBIN 15.6 G/DL (12.0-16.0); MEAN CORPUSCULAR VOLUME 91 FL (80-99); PLATELET COUNT 183 K/UL (150-450); RED BLOOD COUNT 5.04 M/UL (4.20-5.40); RED CELL DISTRIBUTION WIDTH 11.4 % (11.6-14.8); WHITE BLOOD COUNT 2.9 K/UL (4.8-10.8)
[2017-09-07 11:05] LABS: CREATINE KINASE 86 U/L (26-308)
[2017-09-07 11:08] LABS: ALANINE AMINOTRANSFERASE 36 U/L (12-78); ALBUMIN 3.3 G/DL (3.4-5.0); ALBUMIN/GLOBULIN RATIO 0.7 (1.0-2.7); ALKALINE PHOSPHATASE 108 U/L (46-116); ANION GAP 5 mmol/L (5-15); ASPARTATE AMINO TRANSFERASE 34 U/L (15-37); BILIRUBIN,TOTAL 0.2 MG/DL (0.2-1.0); BLOOD UREA NITROGEN 11 mg/dL (7-18); CARBON DIOXIDE 30 MMOL/L (21-32); CHLORIDE 104 MMOL/L (98-107); CREATININE 0.7 MG/DL (0.55-1.30); PHOSPHORUS 3.4 MG/DL (2.5-4.9); POTASSIUM 3.5 MMOL/L (3.5-5.1); SODIUM 139 MMOL/L (136-145)
[2017-09-07 12:00] VITALS: BP 111/77
--- NOTE | 2017-09-07 13:44 | Internal Med Progress Note ---
Subjective Date of Service: Sep 07, 2017 Physician Name DorcasTam Attending Physician Imtiaz Arroyo MD Current Medications Medications (Trade) Dose Ordered Sig/Blanca Route PRN Reason Start Time Stop Time Status Last Admin Dose Admin Acetaminophen (Tylenol) 650 mg Q6H PRN ORAL Mild Pain/Temp > 100.5 09/07/17 00:45 10/05/17 06:44 Acetaminophen/ Hydrocodone Bitart ([place] 5/325) 1 tab Q6H PRN ORAL Severe Pain (Pain Scale 7-10) 09/07/17 00:45 09/12/17 06:44 Albuterol Sulfate (Proventil) 2.5 mg Q4H PRN HHN For Cough 09/07/17 00:45 09/11/17 16:44 Cefepime HCl 1 gm/ Dextrose 110 ml @ 220 mls/hr Q24H IVPB 09/06/17 23:00 09/12/17 22:59 09/06/17 22:58 Daptomycin 350 mg/ Sodium Chloride 55 ml @ 110 mls/hr Q24H IV 09/07/17 17:00 09/13/17 16:59 Dextrose (Dextrose 50%) 25 ml STAT PRN IV Hypoglycemia 09/07/17 06:30 10/05/17 06:29 Dextrose (Dextrose 50%) 50 ml STAT PRN IV Hypoglycemia 09/07/17 06:30 10/05/17 06:29 Heparin Sodium (Porcine) (Heparin 5000 units/ml) 5,000 units EVERY 12 HOURS SUBQ 09/06/17 21:00 10/05/17 08:59 09/07/17 09:03 Insulin Aspart (NovoLOG) BEFORE MEALS AND HS SUBQ 09/06/17 21:00 10/05/17 06:29 09/06/17 21:46 Levetiracetam (Keppra) 1,000 mg Q12HR ORAL 09/06/17 21:00 10/05/17 08:59 09/07/17 09:02 Ondansetron HCl (Zofran) 4 mg Q4H PRN IVP Nausea & Vomiting 09/06/17 22:45 10/05/17 06:44 Phenytoin (Dilantin) 400 mg BEDTIME ORAL 09/06/17 21:00 10/05/17 20:59 6/8/18 21:24 Allergies: Coded Allergies: VANCOMYCIN (Verified Allergy, Intermediate, Hives, 10/31/15) SWELLING, ITCHING TOMATO (Verified Allergy, Unknown, 08/20/13) ROS Limited/Unobtainable: No Constitutional: Reports: no symptoms HEENT: Reports: no symptoms Cardiovascular: Reports: no symptoms Respiratory: Reports: no symptoms Gastrointestinal/Abdominal: Reports: no symptoms Genitourinary: Reports: no symptoms Neurologic/Psychiatric: Reports: no symptoms Subjective 66 YO F admitted with seizure. Cover for Int Skip-Dr Arroyo. C/O cough. Objective Last Vital Signs Date Time Temp Pulse Resp B/P (MAP) Pulse Ox O2 Delivery O2 Flow Rate FiO2 09/07/17 12:00 97.2 95 18 111/77 97 Room Air 97.2 Laboratory Tests Test 09/07/17 10:20 White Blood Count 2.9 K/UL (4.8-10.8) L Red Blood Count 5.04 M/UL (4.20-5.40) Hemoglobin 15.6 G/DL (12.0-16.0) Hematocrit 45.8 % (37.0-47.0) Mean Corpuscular Volume 91 FL (80-99) Mean Corpuscular Hemoglobin 30.8 PG (27.0-31.0) Mean Corpuscular Hemoglobin Concent 34.0 G/DL (32.0-36.0) Red Cell Distribution Width 11.4 % (11.6-14.8) L Platelet Count 183 K/UL (150-450) Mean Platelet Volume 6.4 FL (6.5-10.1) L Neutrophils (%) (Auto) % (45.0-75.0) Lymphocytes (%) (Auto) % (20.0-45.0) Monocytes (%) (Auto) % (1.0-10.0) Eosinophils (%) (Auto) % (0.0-3.0) Basophils (%) (Auto) % (0.0-2.0) Neutrophils % (Manual) Pending Lymphocytes % (Manual) Pending Platelet Estimate Pending Platelet Morphology Pending Erythrocyte Sedimentation Rate Pending Sodium Level 139 MMOL/L (136-145) Potassium Level 3.5 MMOL/L (3.5-5.1) Chloride Level 104 MMOL/L (98-107) Carbon Dioxide Level 30 MMOL/L (21-32) Anion Gap 5 mmol/L (5-15) Blood Urea Nitrogen 11 mg/dL (7-18) Creatinine 0.7 MG/DL (0.55-1.30) Estimat Glomerular Filtration Rate > 60 mL/min (>60) Glucose Level 86 MG/DL (74-106) Calcium Level 9.0 MG/DL (8.5-10.1) Phosphorus Level 3.4 MG/DL (2.5-4.9) Magnesium Level 2.2 MG/DL (1.8-2.4) Total Bilirubin 0.2 MG/DL (0.2-1.0) Aspartate Amino Transf (AST/SGOT) 34 U/L (15-37) Alanine Aminotransferase (ALT/SGPT) 36 U/L (12-78) Alkaline Phosphatase 108 U/L (46-116) Total Creatine Kinase 86 U/L (26-308) C-Reactive Protein, Quantitative 5.2 mg/dL (0.00-0.90) H Total Protein 8.0 G/DL (6.4-8.2) Albumin 3.3 G/DL (3.4-5.0) L Globulin 4.7 g/dL Albumin/Globulin Ratio 0.7 (1.0-2.7) L Phenytoin (Dilantin) Level 16.7 ug/mL (10-20) Microbiology Date/Time Source Procedure Growth Status 09/04/17 22:00 Blood Blood Culture - Preliminary Resulted 09/04/17 21:49 Blood Blood Culture - Preliminary Resulted Intake and Output 09/06/17 09/07/17 19:00 07:00 Intake Total 840 ml 460 ml Balance 840 ml 460 ml Intake Oral 840 ml 240 ml IV Total 220 ml # Voids 5 2 # Bowel Movements 2 1 Objective General Appearance: WD/WN, no apparent distress, alert EENT: PERRL/EOMI, normal ENT inspection Neck: non-tender, normal alignment, supple, normal inspection Cardiovascular: normal peripheral pulses, normal rate, regular rhythm, no gallop/murmur, no JVD Respiratory/Chest: chest wall non-tender, lungs clear, normal breath sounds, no respiratory distress, no accessory muscle use Abdomen: normal bowel sounds, non tender, soft, no organomegaly, no mass Extremities: normal range of motion, non-tender 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 (3) Fever Assessment & Plan: Continue cefepime and daptomycin (4) Seizures Assessment & Plan: See neurology note. Continue keppra and dilantin-dilantin now therapeutic (5) HTN (hypertension) Tam Toscano MD Sep 07, 2017 13:44
[2017-09-07 16:00] VITALS: BP 92/61
[2017-09-07] MEDS ORDERED: DAPTOmycin 350 MG in NS 55 ML IV SCH (17:00)
[2017-09-07] MEDS ORDERED: DAPTOMYCIN IV ONE (17:00)
[2017-09-07] MEDS ORDERED: NS IV ONE (17:00)
[2017-09-07] MEDS: Cefepime HCl 1 GM in D5W 110 ML IVPB SCH ×2 (17:29→23:22)
[2017-09-07 20:00] VITALS: BP 91/57
[2017-09-07] MEDS: Phenytoin 100mg cap ORAL SCH (20:23)
[2017-09-08 04:00] VITALS: BP 118/77
[2017-09-08] MEDS: NovoLOG Insulin Flexpen SUBQ SCH ×4 (06:30→20:57)
--- NOTE | 2017-09-08 07:29 | Pulmonology Progress Note ---
Assessment/Plan Assessment/Plan ASSESSMENT breakthrough seizures with history of seizure disorder Developmental delay Acute encephalopathy secondary to breakthrough seizure likely viral infection possible acute bronchitis Hypertension Diabetes gram positive bacteremia possible sepsis PLAN OF CARE [facility] floor high grade bacteremia, 4/4 with GPC, repeated blood cx prel negative on empiric Dapto and Cefepime ( allergic to vanco) ID consult CXR negative, UA negative O 2 HHN prn get ECHO-no vegetation done 09/04 neuro consult seizure precautions continue Keppra and Dilantin BP management blood sugar management with sliding scale insulin DVT prophylaxis PT/OT symptomatic care case discussed and evaluated by supervising physician Subjective Allergies: Coded Allergies: VANCOMYCIN (Verified Allergy, Intermediate, Hives, 10/31/15) SWELLING, ITCHING TOMATO (Verified Allergy, Unknown, 08/20/13) Subjective afebrile, leukopenic no further seizure activity bacteremia 4/4 GPC repeated blood cx preliminary negative Objective Last 24 Hour Vital Signs Date Time Temp Pulse Resp B/P (MAP) Pulse Ox O2 Delivery O2 Flow Rate FiO2 09/08/17 04:00 96.8 86 18 118/77 98 Room Air 96.8 09/07/17 20:00 96.0 97 16 91/57 99 Room Air 96.0 09/07/17 16:00 97.7 88 18 92/61 97 Room Air 97.7 09/07/17 12:00 97.2 95 18 111/77 97 Room Air 97.2 09/07/17 08:00 97.5 99 18 93/60 98 Room Air 97.5 Intake and Output 09/07/17 09/08/17 19:00 07:00 Intake Total 110 ml Balance 110 ml IV Total 110 ml Objective General Appearance: no acute distress HEENT: normocephalic, atraumatic, anicteric, mucous membranes moist Respiratory/Chest: lungs clear, no accessory muscle use Cardiovascular: normal peripheral pulses, normal rate Abdomen: soft, non tender Extremities: no edema, pedal pulses normal Neurologic/Psychiatric: alert, responsive Musculoskeletal: normal muscle bulk Laboratory Tests 09/07/17 10:20: White Blood Count 2.9L, Red Blood Count 5.04, Hemoglobin 15.6, Hematocrit 45.8, Mean Corpuscular Volume 91, Mean Corpuscular Hemoglobin 30.8, Mean Corpuscular Hemoglobin Concent 34.0, Red Cell Distribution Width 11.4L, Platelet Count 183, Mean Platelet Volume 6.4L, Neutrophils (%) (Auto) , Lymphocytes (%) (Auto) , Monocytes (%) (Auto) , Eosinophils (%) (Auto) , Basophils (%) (Auto) , Differential Total Cells Counted 100, Neutrophils % (Manual) 50, Lymphocytes % ( Manual) 40, Monocytes % (Manual) 6, Eosinophils % (Manual) 4H, Basophils % ( Manual) 0, Band Neutrophils 0, Platelet Estimate Adequate, Platelet Morphology Normal, Red Blood Cell Morphology Normal, Erythrocyte Sedimentation Rate 21, Sodium Level 139, Potassium Level 3.5, Chloride Level 104, Carbon Dioxide Level 30, Anion Gap 5, Blood Urea Nitrogen 11, Creatinine 0.7, Estimat Glomerular Filtration Rate > 60, Glucose Level 86, Calcium Level 9.0, Phosphorus Level 3.4 , Magnesium Level 2.2, Total Bilirubin 0.2, Aspartate Amino Transf (AST/SGOT) 34 , Alanine Aminotransferase (ALT/SGPT) 36, Alkaline Phosphatase 108, Total Creatine Kinase 86, C-Reactive Protein, Quantitative 5.2H, Total Protein 8.0, Albumin 3.3L, Globulin 4.7, Albumin/Globulin Ratio 0.7L, Phenytoin (Dilantin) Level 16.7 Current Medications Medications (Trade) Dose Ordered Sig/Blanca Route PRN Reason Start Time Stop Time Status Last Admin Dose Admin Acetaminophen (Tylenol) 650 mg Q6H PRN ORAL Mild Pain/Temp > 100.5 09/07/17 00:45 10/05/17 06:44 Acetaminophen/ Hydrocodone Bitart ([place] 5/325) 1 tab Q6H PRN ORAL Severe Pain (Pain Scale 7-10) 09/07/17 00:45 09/12/17 06:44 Albuterol Sulfate (Proventil) 2.5 mg Q4H PRN HHN For Cough 09/07/17 00:45 09/11/17 16:44 Cefepime HCl 1 gm/ Dextrose 110 ml @ 220 mls/hr Q24H IVPB 09/06/17 23:00 09/12/17 22:59 09/07/17 23:22 Daptomycin 350 mg/ Sodium Chloride 55 ml @ 110 mls/hr Q24H IV 09/08/17 17:00 09/15/17 16:59 Dextrose (Dextrose 50%) 25 ml STAT PRN IV Hypoglycemia 09/07/17 06:30 10/05/17 06:29 Dextrose (Dextrose 50%) 50 ml STAT PRN IV Hypoglycemia 09/07/17 06:30 10/05/17 06:29 Heparin Sodium (Porcine) (Heparin 5000 units/ml) 5,000 units EVERY 12 HOURS SUBQ 09/06/17 21:00 10/05/17 08:59 09/07/17 20:26 Insulin Aspart (NovoLOG) BEFORE MEALS AND HS SUBQ 09/06/17 21:00 10/05/17 06:29 09/07/17 20:27 Levetiracetam (Keppra) 1,000 mg Q12HR ORAL 09/06/17 21:00 10/05/17 08:59 09/07/17 20:23 Ondansetron HCl (Zofran) 4 mg Q4H PRN IVP Nausea & Vomiting 09/06/17 22:45 10/05/17 06:44 Phenytoin (Dilantin) 400 mg BEDTIME ORAL 09/06/17 21:00 10/05/17 20:59 09/07/17 20:23 Radha Ann INSTRUCTOR DECORATING Sep 08, 2017 07:29
[2017-09-08 08:00] VITALS: BP 127/79
[2017-09-08 08:16] LABS: BASOPHILS % (AUTO) 0.6 % (0.0-2.0); EOSINOPHILS % (AUTO) 4.1 % (0.0-3.0); HEMATOCRIT 40.8 % (37.0-47.0); HEMOGLOBIN 14.2 G/DL (12.0-16.0); LYMPHOCYTES % (AUTO) 39.5 % (20.0-45.0); MEAN CORPUSCULAR VOLUME 90 FL (80-99); MONOCYTES % (AUTO) 7.7 % (1.0-10.0); PLATELET COUNT 163 K/UL (150-450); RED BLOOD COUNT 4.51 M/UL (4.20-5.40); RED CELL DISTRIBUTION WIDTH 11.5 % (11.6-14.8); WHITE BLOOD COUNT 3.6 K/UL (4.8-10.8)
[2017-09-08] MEDS: Heparin 5000 units/ml inj SUBQ SCH ×2 (08:19→20:56)
[2017-09-08 09:00] LABS: ANION GAP 8 mmol/L (5-15); BLOOD UREA NITROGEN 8 mg/dL (7-18); CALCIUM 8.6 MG/DL (8.5-10.1); CARBON DIOXIDE 26 MMOL/L (21-32); CHLORIDE 105 MMOL/L (98-107); CREATININE 0.6 MG/DL (0.55-1.30); POTASSIUM 4.2 MMOL/L (3.5-5.1); SODIUM 139 MMOL/L (136-145)
--- NOTE | 2017-09-08 11:50 | Consultation ---
Consult Note Consult Note [id number] Rasta Fagan MD Sep 08, 2017 11:50
[2017-09-08 12:00] VITALS: BP 148/95
--- NOTE | 2017-09-08 13:21 | Internal Med Progress Note ---
Subjective Date of Service: Sep 08, 2017 Physician Name DorcasTam Attending Physician Imtiaz Arroyo MD Current Medications Medications (Trade) Dose Ordered Sig/Blanca Route PRN Reason Start Time Stop Time Status Last Admin Dose Admin Acetaminophen (Tylenol) 650 mg Q6H PRN ORAL Mild Pain/Temp > 100.5 09/07/17 00:45 10/05/17 06:44 Acetaminophen/ Hydrocodone Bitart ([place] 5/325) 1 tab Q6H PRN ORAL Severe Pain (Pain Scale 7-10) 09/07/17 00:45 09/12/17 06:44 Albuterol Sulfate (Proventil) 2.5 mg Q4H PRN HHN For Cough 09/07/17 00:45 09/11/17 16:44 Cefepime HCl 1 gm/ Dextrose 110 ml @ 220 mls/hr Q24H IVPB 09/06/17 23:00 09/12/17 22:59 09/07/17 23:22 Daptomycin 350 mg/ Sodium Chloride 55 ml @ 110 mls/hr Q24H IV 09/08/17 17:00 09/15/17 16:59 Dextrose (Dextrose 50%) 25 ml STAT PRN IV Hypoglycemia 09/07/17 06:30 10/05/17 06:29 Dextrose (Dextrose 50%) 50 ml STAT PRN IV Hypoglycemia 09/07/17 06:30 10/05/17 06:29 Heparin Sodium (Porcine) (Heparin 5000 units/ml) 5,000 units EVERY 12 HOURS SUBQ 09/06/17 21:00 10/05/17 08:59 09/08/17 08:19 Insulin Aspart (NovoLOG) BEFORE MEALS AND HS SUBQ 09/06/17 21:00 10/05/17 06:29 09/07/17 20:27 Levetiracetam (Keppra) 1,000 mg Q12HR ORAL 09/06/17 21:00 10/05/17 08:59 09/08/17 08:18 Ondansetron HCl (Zofran) 4 mg Q4H PRN IVP Nausea & Vomiting 09/06/17 22:45 10/05/17 06:44 Phenytoin (Dilantin) 400 mg BEDTIME ORAL 09/06/17 21:00 10/05/17 20:59 6/9/18 20:23 Allergies: Coded Allergies: VANCOMYCIN (Verified Allergy, Intermediate, Hives, 10/31/15) SWELLING, ITCHING TOMATO (Verified Allergy, Unknown, 08/20/13) ROS Limited/Unobtainable: Yes Subjective 66 YO F admitted with seizure. Cover for Int Med-Dr Arroyo. Objective Last Vital Signs Date Time Temp Pulse Resp B/P (MAP) Pulse Ox O2 Delivery O2 Flow Rate FiO2 09/08/17 12:00 97.5 87 18 148/95 100 Room Air 97.5 09/08/17 09:25 21 Laboratory Tests Test 09/08/17 07:30 White Blood Count 3.6 K/UL (4.8-10.8) L Red Blood Count 4.51 M/UL (4.20-5.40) Hemoglobin 14.2 G/DL (12.0-16.0) Hematocrit 40.8 % (37.0-47.0) Mean Corpuscular Volume 90 FL (80-99) Mean Corpuscular Hemoglobin 31.4 PG (27.0-31.0) H Mean Corpuscular Hemoglobin Concent 34.8 G/DL (32.0-36.0) Red Cell Distribution Width 11.5 % (11.6-14.8) L Platelet Count 163 K/UL (150-450) Mean Platelet Volume 7.2 FL (6.5-10.1) Neutrophils (%) (Auto) 48.0 % (45.0-75.0) Lymphocytes (%) (Auto) 39.5 % (20.0-45.0) Monocytes (%) (Auto) 7.7 % (1.0-10.0) Eosinophils (%) (Auto) 4.1 % (0.0-3.0) H Basophils (%) (Auto) 0.6 % (0.0-2.0) Sodium Level 139 MMOL/L (136-145) Potassium Level 4.2 MMOL/L (3.5-5.1) Chloride Level 105 MMOL/L (98-107) Carbon Dioxide Level 26 MMOL/L (21-32) Anion Gap 8 mmol/L (5-15) Blood Urea Nitrogen 8 mg/dL (7-18) Creatinine 0.6 MG/DL (0.55-1.30) Estimat Glomerular Filtration Rate > 60 mL/min (>60) Glucose Level 104 MG/DL (74-106) Calcium Level 8.6 MG/DL (8.5-10.1) Phenytoin (Dilantin) Level 22.8 ug/mL (10-20) H HIV (1&2) Antibody Rapid Negative (NEGATIVE) Microbiology Date/Time Source Procedure Growth Status 09/06/17 15:15 Blood Blood Culture - Preliminary NO GROWTH AFTER 24 HOURS Resulted 09/06/17 15:00 Blood Blood Culture - Preliminary NO GROWTH AFTER 24 HOURS Resulted Intake and Output 09/07/17 09/08/17 19:00 07:00 Intake Total 110 ml Balance 110 ml IV Total 110 ml Objective General Appearance: WD/WN, no apparent distress, alert EENT: PERRL/EOMI, normal ENT inspection Neck: non-tender, normal alignment, supple, normal inspection Cardiovascular: normal peripheral pulses, normal rate, regular rhythm, no gallop/murmur, no JVD Respiratory/Chest: chest wall non-tender, lungs clear, normal breath sounds, no respiratory distress, no accessory muscle use Abdomen: normal bowel sounds, non tender, soft, no organomegaly, no mass Extremities: normal range of motion, non-tender Neurologic: explosion welder II-XII grossly normal, no motor/sensory deficits Skin: normal pigmentation, warm/dry Assessment/Plan Problem List: (1) Bronchitis Assessment & Plan: Continue cefepime and daptomycin per pulmonary (2) Diabetes mellitus, type II Assessment & Plan: Continue novolog sliding scale. (3) Fever Assessment & Plan: Continue cefepime and daptomycin (4) Seizures Assessment & Plan: See neurology note. Continue keppra and dilantin. Dilantin now elevated. Decrease dilantin to 300 mg qhs. (5) HTN (hypertension) Status: progressing Tam Toscano MD Sep 08, 2017 13:21
[2017-09-08] MEDS ORDERED: DAPTOmycin 350 MG in NS 55 ML IV SCH (17:00)
[2017-09-08 20:50] VITALS: BP 106/80
[2017-09-08] MEDS ORDERED: Phenytoin 100mg cap ORAL SCH (21:00)
[2017-09-08] MEDS: Cefepime HCl 1 GM in D5W 110 ML IVPB SCH (22:02)
--- NOTE | 2017-09-08 22:30 | Consultation ---
DATE OF CONSULTATION: 09/08/2017 INFECTIOUS DISEASE CONSULTATION CONSULTING PHYSICIAN: Rasta Fagan M.D. REFERRING PHYSICIAN: Imtiaz Arroyo M.D. REASON FOR CONSULTATION: Evaluation of the patient for bacteremia, fever, and antibiotic management. HISTORY OF PRESENT ILLNESS: The patient is a 66-year-old female with multiple medical problems as listed below, who was brought from home to this medical center after the patient had another episode of seizure. The patient was found to be febrile complaining of cough. The patient's blood culture is now growing Gram-positive cocci and the patient has been started on IV antibiotics. Infectious Disease consultation has been requested for further evaluation of the patient's antibiotic management. PAST MEDICAL HISTORY: 1. History of absence seizure. 2. Mental retardation. 3. Diabetes. 4. Hypertension. MEDICATIONS: IV daptomycin and cefepime. ALLERGIES: IV vancomycin. SOCIAL HISTORY: The patient lives at home with a caregiver. REVIEW OF SYSTEMS: HEENT: No recent change in vision or hearing. PULMONARY: Cough. CARDIOVASCULAR: No chest pain or palpitation. GASTROINTESTINAL/ABDOMEN: The patient had one episode of diarrhea prior to admission. GENITOURINARY: Unremarkable. NEUROLOGIC: History of seizure. PHYSICAL EXAMINATION: VITAL SIGNS: Temperature 97.2, blood pressure 127/69, pulse 86, and respiratory rate 18. HEENT: No pale conjunctivae. No icterus. NECK: No lymphadenopathy. CHEST: Clear. HEART: S1, S2. ABDOMEN: Soft. EXTREMITIES: No cyanosis at this time. NEUROLOGIC: Awake. LABORATORY DATA: White blood cells 3.6, hemoglobin 14, and platelets of 153. UA unremarkable. BUN 8, creatinine 0.6. Blood culture at time of admission, Gram-positive cocci in clusters. Repeat blood culture is pending. Chest x-ray, no acute process. ASSESSMENT: The patient is a 66-year-old female with: 1. Fever/runny nose/cough, most likely upper respiratory tract infection, viral. 2. Fever. 3. Positive blood culture Gram-positive cocci, ? contaminant, repeat blood culture are pending. 4. Leukopenia, probably due to Keppra, rule out human immunodeficiency virus. PLAN: 1. We will continue the patient on vancomycin and cefepime for now. 2. Monitor CBC. 3. Monitor BMP. 4. Monitor blood cultures. 5. CRP. 6. HIV screening. 7. Monitor 2D echo results. 8. antibiotics soon if the patient stays stable, afebrile, and cultures fitter and turner to be contaminant. 9. Management of the seizure disorder as per primary. Thank you for this consultation. I will follow the patient with you during this hospitalization.. Rasta Fagan M.D. DR: Margaret JOB#: [id number] CC:
[2017-09-09 00:18] VITALS: BP 103/74
[2017-09-09 04:49] VITALS: BP 93/56
[2017-09-09] MEDS: NovoLOG Insulin Flexpen SUBQ SCH ×2 (06:11→11:30)
[2017-09-09 08:00] VITALS: BP 100/74
[2017-09-09 08:23] LABS: HEMATOCRIT 41.7 % (37.0-47.0); HEMOGLOBIN 13.8 G/DL (12.0-16.0); MEAN CORPUSCULAR VOLUME 91 FL (80-99); PLATELET COUNT 186 K/UL (150-450); RED BLOOD COUNT 4.58 M/UL (4.20-5.40); RED CELL DISTRIBUTION WIDTH 11.5 % (11.6-14.8); WHITE BLOOD COUNT 2.9 K/UL (4.8-10.8)
[2017-09-09] MEDS: Heparin 5000 units/ml inj SUBQ SCH (08:39)
[2017-09-09 08:52] LABS: ANION GAP 8 mmol/L (5-15); BLOOD UREA NITROGEN 13 mg/dL (7-18); CALCIUM 8.5 MG/DL (8.5-10.1); CARBON DIOXIDE 26 MMOL/L (21-32); CHLORIDE 106 MMOL/L (98-107); CREATININE 0.8 MG/DL (0.55-1.30); POTASSIUM 4.1 MMOL/L (3.5-5.1)
[2017-09-09 08:54] LABS: SODIUM 140 MMOL/L (136-145)
--- NOTE | 2017-09-09 09:41 | Infectious Diseases Prog Note ---
Assessment/Plan Assessment/Plan ASSESSMENT: The patient is a 66-year-old female with: 1. Fever/runny nose/cough, most likely upper respiratory tract infection, viral. -Chest xray no acute disease 2. Fever, resolved 3. S. hominis bactereamia- 4/4 on 09/04; high grade but repeat Bcx NTD, no presence of central lines or PPM; Echo no vegetations; suspect most likely contamination -09/06 Bcx 4/4+; 09/06 Bcx NTD x4 -Echo- Thickened MV ; no discrete vegetations -CRP 5.2 4. Leukopenia, probably due to Keppra -HIV ab sc neg History of absence seizure. Mental retardation. Diabetes. Hypertension. Vanco allergy PLAN: 1. We will continue the patient on Daptomycin #4/5 and pending repaet Bcx -d/c cefepime #4 2. Monitor CBC. 3. Monitor BMP. 4. Monitor blood cultures. 5. Management of the seizure disorder as per primary. Thank you for this consultation. I will follow the patient with you during this hospitalization.. Subjective Allergies: Coded Allergies: VANCOMYCIN (Verified Allergy, Intermediate, Hives, 10/31/15) SWELLING, ITCHING TOMATO (Verified Allergy, Unknown, 08/20/13) Subjective afebrile in >72hrs leukopenia repeat Bcx NTD Objective Vital Signs Last 24 Hour Vital Signs Date Time Temp Pulse Resp B/P (MAP) Pulse Ox O2 Delivery O2 Flow Rate FiO2 09/09/17 05:00 Room Air 09/09/17 04:49 97.9 92 17 93/56 97 97.9 09/09/17 00:19 Room Air 09/09/17 00:18 98.2 91 16 103/74 98 98.2 09/08/17 20:50 98.5 98 18 106/80 98 98.5 09/08/17 20:00 Room Air 09/08/17 18:57 83 20 Room Air 21 09/08/17 12:00 97.5 87 18 148/95 100 Room Air 97.5 Height (Feet): 5 Height (Inches): 3.00 Weight (Pounds): 120 Objective HEENT: No pale conjunctivae. No icterus. NECK: No lymphadenopathy. CHEST: Clear. HEART: S1, S2. ABDOMEN: Soft. EXTREMITIES: No cyanosis at this time. NEUROLOGIC: Awake. Microbiology Date/Time Source Procedure Growth Status 09/06/17 15:15 Blood Blood Culture - Preliminary NO GROWTH AFTER 48 HOURS Resulted 09/06/17 15:00 Blood Blood Culture - Preliminary NO GROWTH AFTER 48 HOURS Resulted Laboratory Tests Test 09/09/17 07:42 White Blood Count 2.9 K/UL (4.8-10.8) L Red Blood Count 4.58 M/UL (4.20-5.40) Hemoglobin 13.8 G/DL (12.0-16.0) Hematocrit 41.7 % (37.0-47.0) Mean Corpuscular Volume 91 FL (80-99) Mean Corpuscular Hemoglobin 30.1 PG (27.0-31.0) Mean Corpuscular Hemoglobin Concent 33.0 G/DL (32.0-36.0) Red Cell Distribution Width 11.5 % (11.6-14.8) L Platelet Count 186 K/UL (150-450) Mean Platelet Volume 7.1 FL (6.5-10.1) Neutrophils (%) (Auto) % (45.0-75.0) Lymphocytes (%) (Auto) % (20.0-45.0) Monocytes (%) (Auto) % (1.0-10.0) Eosinophils (%) (Auto) % (0.0-3.0) Basophils (%) (Auto) % (0.0-2.0) Neutrophils % (Manual) Pending Lymphocytes % (Manual) Pending Platelet Estimate Pending Platelet Morphology Pending Sodium Level 140 MMOL/L (136-145) Potassium Level 4.1 MMOL/L (3.5-5.1) Chloride Level 106 MMOL/L (98-107) Carbon Dioxide Level 26 MMOL/L (21-32) Anion Gap 8 mmol/L (5-15) Blood Urea Nitrogen 13 mg/dL (7-18) Creatinine 0.8 MG/DL (0.55-1.30) Estimat Glomerular Filtration Rate > 60 mL/min (>60) Glucose Level 130 MG/DL (74-106) H Calcium Level 8.5 MG/DL (8.5-10.1) Phenytoin (Dilantin) Level 21.2 ug/mL (10-20) H Current Medications Medications (Trade) Dose Ordered Sig/Blanca Route PRN Reason Start Time Stop Time Status Last Admin Dose Admin Acetaminophen (Tylenol) 650 mg Q6H PRN ORAL Mild Pain/Temp > 100.5 09/07/17 00:45 10/05/17 06:44 Acetaminophen/ Hydrocodone Bitart ([place] 5/325) 1 tab Q6H PRN ORAL Severe Pain (Pain Scale 7-10) 09/07/17 00:45 09/12/17 06:44 Albuterol Sulfate (Proventil) 2.5 mg Q4H PRN HHN For Cough 09/07/17 00:45 09/11/17 16:44 Cefepime HCl 1 gm/ Dextrose 110 ml @ 220 mls/hr Q24H IVPB 09/06/17 23:00 09/12/17 22:59 09/08/17 22:02 Daptomycin 350 mg/ Sodium Chloride 55 ml @ 110 mls/hr Q24H IV 09/08/17 17:00 09/15/17 16:59 09/08/17 17:17 Dextrose (Dextrose 50%) 25 ml STAT PRN IV Hypoglycemia 09/07/17 06:30 10/05/17 06:29 Dextrose (Dextrose 50%) 50 ml STAT PRN IV Hypoglycemia 09/07/17 06:30 10/05/17 06:29 Heparin Sodium (Porcine) (Heparin 5000 units/ml) 5,000 units EVERY 12 HOURS SUBQ 09/06/17 21:00 10/05/17 08:59 09/09/17 08:39 Insulin Aspart (NovoLOG) BEFORE MEALS AND HS SUBQ 09/06/17 21:00 10/05/17 06:29 09/08/17 20:57 Levetiracetam (Keppra) 1,000 mg Q12HR ORAL 09/06/17 21:00 10/05/17 08:59 09/09/17 08:39 Ondansetron HCl (Zofran) 4 mg Q4H PRN IVP Nausea & Vomiting 09/06/17 22:45 10/05/17 06:44 Phenytoin (Dilantin) 300 mg BEDTIME ORAL 09/08/17 21:00 10/05/17 20:59 09/08/17 20:55 Rani Lewis M.D. Sep 09, 2017 09:41
--- NOTE | 2017-09-09 11:42 | Internal Med Progress Note ---
Subjective Date of Service: Sep 09, 2017 Physician Name Tam Toscano Attending Physician Imtiaz Arroyo MD Current Medications Medications (Trade) Dose Ordered Sig/Blanca Route PRN Reason Start Time Stop Time Status Last Admin Dose Admin Acetaminophen (Tylenol) 650 mg Q6H PRN ORAL Mild Pain/Temp > 100.5 09/07/17 00:45 10/05/17 06:44 Acetaminophen/ Hydrocodone Bitart ([place] 5/325) 1 tab Q6H PRN ORAL Severe Pain (Pain Scale 7-10) 09/07/17 00:45 09/12/17 06:44 Albuterol Sulfate (Proventil) 2.5 mg Q4H PRN HHN For Cough 09/07/17 00:45 09/11/17 16:44 Daptomycin 350 mg/ Sodium Chloride 55 ml @ 110 mls/hr Q24H IV 09/08/17 17:00 09/15/17 16:59 09/08/17 17:17 Dextrose (Dextrose 50%) 25 ml STAT PRN IV Hypoglycemia 09/07/17 06:30 10/05/17 06:29 Dextrose (Dextrose 50%) 50 ml STAT PRN IV Hypoglycemia 09/07/17 06:30 10/05/17 06:29 Heparin Sodium (Porcine) (Heparin 5000 units/ml) 5,000 units EVERY 12 HOURS SUBQ 09/06/17 21:00 10/05/17 08:59 09/09/17 08:39 Insulin Aspart (NovoLOG) BEFORE MEALS AND HS SUBQ 09/06/17 21:00 10/05/17 06:29 09/08/17 20:57 Levetiracetam (Keppra) 1,000 mg Q12HR ORAL 09/06/17 21:00 10/05/17 08:59 09/09/17 08:39 Ondansetron HCl (Zofran) 4 mg Q4H PRN IVP Nausea & Vomiting 09/06/17 22:45 10/05/17 06:44 Phenytoin (Dilantin) 300 mg BEDTIME ORAL 09/08/17 21:00 10/05/17 20:59 09/08/17 20:55 Allergies: Coded Allergies: VANCOMYCIN (Verified Allergy, Intermediate, Hives, 10/31/15) SWELLING, ITCHING TOMATO (Verified Allergy, Unknown, 08/20/13) ROS Limited/Unobtainable: Yes Subjective 66 YO F admitted with seizure. No new seizure overnight. Cover for Int Med-Dr Arroyo. Await discharge home today Objective Last Vital Signs Date Time Temp Pulse Resp B/P (MAP) Pulse Ox O2 Delivery O2 Flow Rate FiO2 09/09/17 08:00 98.0 106 19 100/74 97 Room Air 98.0 09/08/17 18:57 21 Laboratory Tests Test 09/09/17 07:42 White Blood Count 2.9 K/UL (4.8-10.8) L Red Blood Count 4.58 M/UL (4.20-5.40) Hemoglobin 13.8 G/DL (12.0-16.0) Hematocrit 41.7 % (37.0-47.0) Mean Corpuscular Volume 91 FL (80-99) Mean Corpuscular Hemoglobin 30.1 PG (27.0-31.0) Mean Corpuscular Hemoglobin Concent 33.0 G/DL (32.0-36.0) Red Cell Distribution Width 11.5 % (11.6-14.8) L Platelet Count 186 K/UL (150-450) Mean Platelet Volume 7.1 FL (6.5-10.1) Neutrophils (%) (Auto) % (45.0-75.0) Lymphocytes (%) (Auto) % (20.0-45.0) Monocytes (%) (Auto) % (1.0-10.0) Eosinophils (%) (Auto) % (0.0-3.0) Basophils (%) (Auto) % (0.0-2.0) Differential Total Cells Counted 100 Neutrophils % (Manual) 54 % (45-75) Lymphocytes % (Manual) 35 % (20-45) Monocytes % (Manual) 8 % (1-10) Eosinophils % (Manual) 3 % (0-3) Basophils % (Manual) 0 % (0-2) Band Neutrophils 0 % (0-8) Platelet Estimate Adequate Platelet Morphology Normal Sodium Level 140 MMOL/L (136-145) Potassium Level 4.1 MMOL/L (3.5-5.1) Chloride Level 106 MMOL/L (98-107) Carbon Dioxide Level 26 MMOL/L (21-32) Anion Gap 8 mmol/L (5-15) Blood Urea Nitrogen 13 mg/dL (7-18) Creatinine 0.8 MG/DL (0.55-1.30) Estimat Glomerular Filtration Rate > 60 mL/min (>60) Glucose Level 130 MG/DL (74-106) H Calcium Level 8.5 MG/DL (8.5-10.1) Phenytoin (Dilantin) Level 21.2 ug/mL (10-20) H Microbiology Date/Time Source Procedure Growth Status 09/06/17 15:15 Blood Blood Culture - Preliminary NO GROWTH AFTER 48 HOURS Resulted 09/06/17 15:00 Blood Blood Culture - Preliminary NO GROWTH AFTER 48 HOURS Resulted Intake and Output 09/08/17 09/09/17 19:00 07:00 Intake Total 550 ml 110 ml Balance 550 ml 110 ml Intake Oral 550 ml IV Total 110 ml # Voids 3 2 # Bowel Movements 1 Objective General Appearance: WD/WN, no apparent distress, alert EENT: PERRL/EOMI, normal ENT inspection Neck: non-tender, normal alignment, supple, normal inspection Cardiovascular: normal peripheral pulses, normal rate, regular rhythm, no gallop/murmur, no JVD Respiratory/Chest: chest wall non-tender, lungs clear, normal breath sounds, no respiratory distress, no accessory muscle use Abdomen: normal bowel sounds, non tender, soft, no organomegaly, no mass Extremities: normal range of motion, non-tender Neurologic: stippler II-XII grossly normal, no motor/sensory deficits Skin: normal pigmentation, warm/dry Assessment/Plan Problem List: (1) Bronchitis Assessment & Plan: D/C cefepime and daptomycin per pulmonary. (2) Diabetes mellitus, type II Assessment & Plan: Continue novolog sliding scale. (3) Fever Assessment & Plan: D/C cefepime and daptomycin (4) Seizures Assessment & Plan: See neurology note. Continue keppra and dilantin. Dilantin therapeuti on300 mg qhs. (5) HTN (hypertension) Status: progressing Assessment/Plan D/C home today-F/U PCP Dr Petty on 09/12/17 Tam Toscano MD Sep 09, 2017 11:42
[2017-09-09 12:00] VITALS: BP 120/60
--- NOTE | 2017-09-10 11:14 | Discharge Summary ---
Discharge Summary Discharge Summary _ DATE OF ADMISSION: 09/04/2017 DATE OF DISCHARGE: 09/09/2017 REASON FOR ADMISSION: 66 years old female with a past medical history significant for diabetes mellitus, hypertension, seizure disorder, developmental delay, brought to emergency room for evaluation after witnessed seizure. Patien had seizure disorder since childhood. Last seizure was 6 months ago. Vital signs revealed fever 101.8, tachycardia 119, pulse oximetry was stable on room air. Patient with runny nose, cough with yellowish phlegm production, no wheezing, no hemoptysis. No chest pain. Laboratory workup revealed no leukocytosis, stable hemoglobin and hematocrit ,stable renal parameters and electrolytes, urinalysis was negative for evidence of infection. Chest x-ray revealed sinus tachycardia, no acute ischemic changes. Troponin was negative, chest x-ray revealed no acute cardiopulmonary pathology. Patient admitted with diagnosis of seizure disorder, generalized convulsive intractable; developmental delay; possible sepsis. CONSULTANTS: pulmonary Dr. Juli MITTAL specialist Dr. Fagan [facility] COURSE: Patient admitted to telemetry floor. Seizure precautions were maintained. Patient was started on Keppra and Dilantin. Ativan was on board for breakthrough seizure. further seizure activity. Neurology evaluation was requested. Unfortunately unable to obtain. Blood pressure was managed with current regimen and remained stable ; blood sugar was managed with sliding scale of insulin and remained stable. DVT prophylaxis provided. Echocardiogram revealed preserved ejection fraction of 60% ,no evidence of vegetation and moderate mitral regurgitation. Patient initially with a runny nose and cough , most likely upper respiratory infection ,viral ; possible acute acute bronchitis. Supplemental oxygen and pulmonary toilet were on board as needed. Pulse oximetry was stable in room air. Antitussive provided as needed. Blood culture initially showed high-grade 4 out of 4 Staphylococcus Epidermidis. Echocardiogram revealed no evidence of vegetation. No presence of central line or permanent pacemaker. Repeated blood culture were negative . CXR and UA negative. No evidence of infection otherwise. Per ID specialist , suspected most likely contamination. Leukopenia initially present , was probably due to Keppra. HIV test was negative. Patient was on empiric antibiotics while in the hospital , however with negative blood culture antibiotics were discontinued . Patient was working with physical and occupational therapists. Supportive care provided. DVT prophylaxis provided . Patient was stable for discharge home FINAL DIAGNOSES: Breakthrough seizure with a history of seizure disorder Seizure disorder, generalized convulsive, intractable Developmental delay Acute encephalopathy secondary to breakthrough seizure Viral infection Probable bronchitis Diabetes mellitus Hypertension Bacteremia( staph epidermidis, high grade ) repeated blood culture negative( presumed contaminant) DISCHARGE MEDICATIONS: See Medication Reconciliation list. DISCHARGE INSTRUCTIONS: Patient was discharged home. Follow up with her primary care provider in one week. Radha Ann NP Sep 10, 2017 11:14
--- NOTE | 2017-09-10 13:30 | Cardiology Report ---
APPROVED REPORT EXAM: Two-dimensional and M-mode echocardiogram with Doppler and color Doppler. INDICATION Endocarditis M-Mode DIMENSIONS IVSd1.5 (0.7-1.1cm)Left Atrium (MM)2.7 (1.6-4.0cm) LVDd3.4 (3.5-5.6cm)Aortic Root2.3 (2.0-3.7cm) PWd0.8 (0.7-1.1cm)Aortic Cusp Exc.1.6 (1.5-2.0cm) LVDs2.2 (2.5-4.0cm) PWs1.3 cm Normal left ventricular chamber size, systolic function and wall motion. Left ventricular ejection fraction estimated to be 55-60 %. Mild left ventricular hypertrophy. No evidence of pericardial effusion. All other cardiac chamber sizes are within normal limits. Mild focal aortic valve sclerosis with adequate cusp excursion. Mildly thickened mitral valve leaflets with normal excursion. Mild mitral annulus and aortic root calcification. Normal pulmonic valve structure. Normal tricuspid valve structure. Subcostal views not obtainable. No discrete vegetations seen on thid transthoracic echo Atrial sept aneurysm noted A color flow and spectral Doppler study was performed and revealed: No aortic insufficiency. Mild to moderate mitral regurgitation. Mitral diastolic velocities suggest mild left ventricular diastolic dysfunction (Grade I). Mild tricuspid regurgitation. Tricuspid systolic velocities suggests peak right ventricular systolic pressure of 26 mmHg.
== END 2017-09-09 14:00 | disposition home or self-care (01) | DRG 53 ==
LOC: EDBD 21:54 → EMR 22:00 → EDBEDREQ 22:24 → 2E 22:55 → EDBEDREQ 23:43 → 4E 09-06 20:58 → 3E 09-08 13:08
DX: G40.419 Other generalized epilepsy and epileptic syndromes, intractable, without status epilepticus (principal); G93.40 Encephalopathy, unspecified; F79 Unspecified intellectual disabilities; E11.9 Type 2 diabetes mellitus without complications; I10 Essential (primary) hypertension; J06.9 Acute upper respiratory infection, unspecified; J20.9 Acute bronchitis, unspecified; Z88.1 Allergy status to other antibiotic agents; I25.10 Atherosclerotic heart disease of native coronary artery without angina pectoris
CPT/HCPCS: 36415; 71045; 80048; 80053; 80184; 80185; 80299; 81003; 82550; 82553; 82962; 83605; 83735; 83880; 84100; 84484; 85007; 85025; 85651; 86140; 86703; 87040; 87181; 93005; 93306; 94664; 99285; J1815

== ENCOUNTER 2018-10-13 20:44 | Inpatient (IN) | payer MEDICAID ==
[~2018-10-13] VITALS: Ht 160 cm; Wt 49.6 kg
[~2018-10-13 20:44] MED LIST changes: +PHENERGAN SUPP25 MG PO
[2018-10-13 20:45] VITALS: BP 112/65
--- NOTE | 2018-10-13 20:45 | NUR ---
ED Nurse Note: Patient biba from home c/o syncope. patient suffers from developmental delay to which caregiver stated that the patient had a rapid episode of syncope in her home and fell. EMS states that at time of arrival to the home, patients blood pressure was 50/40. at time of arrival to the hospital, patients blood pressure was 112/52. patient was given about 250mL of normal saline.
--- NOTE | 2018-10-13 20:53 | Emergency Room Report ---
History of Present Illness General Chief Complaint: Syncope Source: EMS, Caregiver Present Illness HPI The caregiver called EMS because the patient supposedly had a seizure. She has a history of seizure disorder and is on Dilantin. She does have grand mal seizures. The paramedics when they assessed her found that her blood pressure was low. They started giving her IV fluids. Blood pressure improved. Her mentation improved. Patient has developmental delay. Last admitted August 2017. D/C Dx: Breakthrough seizure with a history of seizure disorder Seizure disorder, generalized convulsive, intractable Developmental delay Acute encephalopathy secondary to breakthrough seizure Viral infection Probable bronchitis Diabetes mellitus Hypertension Bacteremia( staph epidermidis, high grade ) repeated blood culture negative( presumed contaminant) Allergies: Coded Allergies: VANCOMYCIN (Verified Allergy, Intermediate, Hives, 10/31/15) SWELLING, ITCHING TOMATO (Verified Allergy, Unknown, 08/20/13) Patient History Limited by: medical condition Past Medical History: see triage record, old chart reviewed Social History: Denies: smoking, alcohol use, drug use 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 Reviewed Nursing Documentation: PMH: Agreed; PSxH: Agreed Nursing Documentation-PMH Past Medical History: No History, Except For Hx Cardiac Problems: Yes Hx Hypertension: Yes Hx Diabetes: Yes Hx Cancer: No Hx Gastrointestinal Problems: Yes Hx Neurological Problems: Yes - mental retardation Hx Seizures: Yes Hx Memory Loss: Yes Hx Syncope: Yes Review of Systems All Other Systems: limited Physical Exam Vital Signs Date Time Temp Pulse Resp B/P (MAP) Pulse Ox O2 Delivery O2 Flow Rate FiO2 10/13/18 20:36 97.3 80 14 78/48 (58) 97 Room Air Sp02 EP Interpretation: reviewed, normal General Appearance: no apparent distress, alert, non-toxic, other - Short stature, Chronically Ill Head: normocephalic, atraumatic Eyes: bilateral eye normal inspection, bilateral eye PERRL, bilateral eye EOMI ENT: moist mucus membranes - Poor dentition no lingual trauma, gingival hypertrophy Neck: full range of motion, supple, no bony tend Respiratory: chest non-tender, lungs clear, normal breath sounds Cardiovascular #1: regular rate, rhythm Cardiovascular #2: 2+ radial (R) Gastrointestinal: normal inspection, normal bowel sounds, non tender, no mass, non-distended Genitourinary: no CVA tenderness Musculoskeletal: back normal, normal range of motion, no calf tenderness Neurologic: alert, motor strength/tone normal, DTRs symmetric, sensory intact, oriented - X1 Psychiatric: other - Developmental delay but smiling Skin: no rash Medical Decision Making Diagnostic Impression: Primary Impression: Syncope Qualified Codes: R55 - Syncope and collapse Additional Impressions: Subtherapeutic serum dilantin level Transient hypotension Development delay Possible breakthrough seizure ER Course Patient presents with an episode of altered mentation and loss of consciousness. Differential includes syncope, acute myocardial infarction, seizure, sepsis amongst others. She was hypotensive in the field. At this time her driving instructor says she is back to her baseline. Evaluation will be with EKG, chest x-ray and labs. The patient will continue to receive IV hydration. CT of the head is not indicated. Anticonvulsant level determination is indicated. The patient is placed on a louver door assembler and seizure precautions were undertaken. Considerations for occult infection. EKG without injury. Chest x-ray unremarkable. Labs significant for no Dilantin. White count normal. No left shift. Electrolytes unremarkable. Urinalysis clear. No evidence of fever or infection at this time. Dilantin administered IV. Blood pressure improved and no seizure activity observed. Discussed the lack of Dilantin with the driving instructor. She states she believes that the patient has been taking the medication. Patient admitted to Dr. Arroyo at the request of the driving instructor. Laboratory Tests Test 10/13/18 21:00 White Blood Count 5.9 K/UL (4.8-10.8) Red Blood Count 4.51 M/UL (4.20-5.40) Hemoglobin 13.8 G/DL (12.0-16.0) Hematocrit 41.0 % (37.0-47.0) Mean Corpuscular Volume 91 FL (80-99) Mean Corpuscular Hemoglobin 30.7 PG (27.0-31.0) Mean Corpuscular Hemoglobin Concent 33.7 G/DL (32.0-36.0) Red Cell Distribution Width 11.1 % (11.6-14.8) L Platelet Count 178 K/UL (150-450) Mean Platelet Volume 7.1 FL (6.5-10.1) Neutrophils (%) (Auto) 63.3 % (45.0-75.0) Lymphocytes (%) (Auto) 28.6 % (20.0-45.0) Monocytes (%) (Auto) 5.6 % (1.0-10.0) Eosinophils (%) (Auto) 1.7 % (0.0-3.0) Basophils (%) (Auto) 0.9 % (0.0-2.0) Prothrombin Time 11.3 SEC (9.30-11.50) Prothrombin Time INR 1.1 (0.9-1.1) PTT 26 SEC (23-33) Urine Color Yellow Urine Appearance Slightly cloudy Urine pH 5 (4.5-8.0) Urine Specific [place] 1.020 (1.005-1.035) Urine Protein 1+ (NEGATIVE) H Urine Glucose (UA) Negative (NEGATIVE) Urine Ketones Negative (NEGATIVE) Urine Blood 3+ (NEGATIVE) H Urine Nitrite Positive (NEGATIVE) H Urine Bilirubin Negative (NEGATIVE) Urine Urobilinogen 1 MG/DL (0.0-1.0) H Urine Leukocyte Esterase 1+ (NEGATIVE) H Urine RBC 2-4 /HPF (0 - 2) H Urine WBC 2-4 /HPF (0 - 2) Urine Squamous Epithelial Cells None /LPF (NONE/OCC) Urine Bacteria Many /HPF (NONE) H Sodium Level 139 MMOL/L (136-145) Potassium Level 3.6 MMOL/L (3.5-5.1) Chloride Level 106 MMOL/L (98-107) Carbon Dioxide Level 26 MMOL/L (21-32) Anion Gap 7 mmol/L (5-15) Blood Urea Nitrogen 18 mg/dL (7-18) Creatinine 0.9 MG/DL (0.55-1.30) Estimate Glomerular Filtration Rate > 60 mL/min (>60) Glucose Level 116 MG/DL (74-106) H Lactic Acid Level 1.60 mmol/L (0.4-2.0) Calcium Level 8.8 MG/DL (8.5-10.1) Magnesium Level 1.8 MG/DL (1.8-2.4) Total Bilirubin 0.4 MG/DL (0.2-1.0) Aspartate Amino Transferase (AST) 23 U/L (15-37) Alanine Aminotransferase (ALT) 13 U/L (12-78) Alkaline Phosphatase 86 U/L (46-116) Total Creatine Kinase 52 U/L (26-308) Troponin I 0.003 ng/mL (0.000-0.056) Pro-B-Type Natriuretic Peptide 109 pg/mL (0-125) Total Protein 6.7 G/DL (6.4-8.2) Albumin 3.4 G/DL (3.4-5.0) Globulin 3.3 g/dL Albumin/Globulin Ratio 1.0 (1.0-2.7) Lipase 128 U/L (73-393) Phenytoin (Dilantin) Level < 0.5 ug/mL (10-20) L EKG Diagnostic Results Rate: normal ST Segments: no acute changes - Sinus rhythm with first-degree AV block ST inversions laterally right bundle branch block Rhythm Strip Diag. Results EP Interpretation: yes Rhythm: NSR, no PVC's, no ectopy Chest X-Ray Diagnostic Results Chest X-Ray Diagnostic Results : Chest X-Ray Ordered: Yes # of Views/Limited/Complete: 1 View Indication: Other EP Interpretation: Yes Interpretation: no consolidation, no effusion, no pneumothorax Impression: No acute disease Electronically Signed by: Electronically signed by Phoenix Mena MD Last Vital Signs Date Time Temp Pulse Resp B/P (MAP) Pulse Ox O2 Delivery O2 Flow Rate FiO2 10/14/18 00:43 Room Air 10/14/18 00:20 97.9 96 20 143/90 (107) 100 Status: improved Disposition: PLACE IN OBSERVATION Condition: Serious Phoenix Mena MD Oct 13, 2018 20:53
[2018-10-13 21:24] LABS: BASOPHILS % (AUTO) 0.9 % (0.0-2.0); EOSINOPHILS % (AUTO) 1.7 % (0.0-3.0); HEMOGLOBIN 13.8 G/DL (12.0-16.0); LYMPHOCYTES % (AUTO) 28.6 % (20.0-45.0); MEAN CORPUSCULAR VOLUME 91 FL (80-99); MONOCYTES % (AUTO) 5.6 % (1.0-10.0); NEUTROPHILS % (AUTO) 63.3 % (45.0-75.0); PLATELET COUNT 178 K/UL (150-450); RED BLOOD COUNT 4.51 M/UL (4.20-5.40); RED CELL DISTRIBUTION WIDTH 11.1 % (11.6-14.8); WHITE BLOOD COUNT 5.9 K/UL (4.8-10.8)
[2018-10-13 21:27] LABS: INR 1.1 (0.9-1.1)
[2018-10-13 21:29] LABS: APPEARANCE,URINE SLIGHTLY CLOUDY; BILIRUBIN, URINE NEGATIVE (NEGATIVE); GLUCOSE, URINE (UA) NEGATIVE (NEGATIVE); KETONES,URINE NEGATIVE (NEGATIVE); LEUKOCYTE ESTERASE ,URINE 1+ (NEGATIVE); NITRITE,URINE POSITIVE (NEGATIVE); PH,URINE 5 (4.5-8.0); PROTEIN,URINE 1+ (NEGATIVE); UROBILINOGEN,URINE 1 MG/DL (0.0-1.0)
[2018-10-13 21:31] LABS: ANION GAP 7 mmol/L (5-15); BLOOD UREA NITROGEN 18 mg/dL (7-18); CALCIUM 8.8 MG/DL (8.5-10.1); CARBON DIOXIDE 26 MMOL/L (21-32); CHLORIDE 106 MMOL/L (98-107); COLOR,URINE YELLOW; CREATININE 0.9 MG/DL (0.55-1.30); POTASSIUM 3.6 MMOL/L (3.5-5.1); SODIUM 139 MMOL/L (136-145)
[2018-10-13 21:41] LABS: ALANINE AMINOTRANSFERASE 13 U/L (12-78); ALBUMIN 3.4 G/DL (3.4-5.0); ALKALINE PHOSPHATASE 86 U/L (46-116); ASPARTATE AMINO TRANSFERASE 23 U/L (15-37); BILIRUBIN,TOTAL 0.4 MG/DL (0.2-1.0); CREATINE KINASE 52 U/L (26-308)
[2018-10-13] MEDS ORDERED: Phenytoin 500 MG in NS 110 ML IVPB STA (21:49)
[2018-10-13] MEDS ORDERED: Zolpidem 5mg tab ORAL PRN (22:15)
[2018-10-13] MEDS ORDERED: Miralax 17gm pkt ORAL PRN (22:15)
[2018-10-13] MEDS ORDERED: LORazepam Inj 2mg/ml 1ml IV PRN (22:15)
[2018-10-13] MEDS ORDERED: Morphine Sulfate 2mg/ml Inj(IV/IM USE ONLY) IVP PRN (22:15)
--- NOTE | 2018-10-13 22:45 | NUR ---
ED Nurse Note: patient at no distress at this time
--- NOTE | 2018-10-13 23:10 | NUR ---
NURSE NOTES: Calvin Vasquez called and gave telephone report. awaiting for Pt rooms to be ready via EVS and pt to arrive.
--- NOTE | 2018-10-13 23:20 | NUR ---
NURSE NOTES: EVS summoned for a second time to have room cleaned for pt. awaiting EVS
--- NOTE | 2018-10-13 23:21 | History & Physical ---
History and Physical History & Physicial The patient was seen and examined at bedside and all new and available data was reviewed in the patients chart. F/U Labs -PT mobility F/U with Dr. Bustos Recommendation (Patient was seen earlier today. Signature timestamp does not reflect patient encounter time) Imtiaz Koroma MD, MD Oct 13, 2018 23:21
--- NOTE | 2018-10-13 23:30 | NUR ---
NURSE NOTES: EVS alerted a 3rd time to have room cleaned for Pt. awaiting response.
--- NOTE | 2018-10-13 23:30 | NUR ---
ED Nurse Note: Patient made a void, cleaned patient up, no skin issues noted
[2018-10-13 23:41] VITALS: BP 149/93
--- NOTE | 2018-10-14 00:15 | NUR ---
TRANSFER TO FLOOR: Patient transferred to SDU Overflow, Telemetery as ordered, per . Report given to SUSANA Santo
[2018-10-14 00:20] VITALS: BP 143/90
--- NOTE | 2018-10-14 00:20 | NUR ---
NURSE NOTES: Pt received from Calvin CORDERO RN. pt appears to be in stable condition, adn calm during transfer. pt is noted to has a L AC 22 G started from EMS, patent and able to flush. pt has a websphere process server developer attached and showing NSR, no signs symptoms of acute distress noted. pt is on room air, no signs symptoms of acute distress noted to resp assessment. pt satting at 99% as of now. bed locked and low, bed armed, side rails up times 3, and padded, suction as bed side, call light within reach. will establish plan of care. family at bed side as of now.
[2018-10-14 04:00] VITALS: BP 133/69
[2018-10-14 05:42] LABS: BASOPHILS % (AUTO) 0.2 % (0.0-2.0); EOSINOPHILS % (AUTO) 0.4 % (0.0-3.0); HEMATOCRIT 41.3 % (37.0-47.0); HEMOGLOBIN 13.9 G/DL (12.0-16.0); LYMPHOCYTES % (AUTO) 10.4 % (20.0-45.0); MEAN CORPUSCULAR VOLUME 93 FL (80-99); MONOCYTES % (AUTO) 5.1 % (1.0-10.0); NEUTROPHILS % (AUTO) 83.9 % (45.0-75.0); PLATELET COUNT 184 K/UL (150-450); RED BLOOD COUNT 4.46 M/UL (4.20-5.40); WHITE BLOOD COUNT 8.7 K/UL (4.8-10.8)
[2018-10-14 06:10] LABS: ALANINE AMINOTRANSFERASE 14 U/L (12-78); ALBUMIN 3.4 G/DL (3.4-5.0); ALKALINE PHOSPHATASE 105 U/L (46-116); ANION GAP 9 mmol/L (5-15); ASPARTATE AMINO TRANSFERASE 26 U/L (15-37); BILIRUBIN,TOTAL 0.3 MG/DL (0.2-1.0); BLOOD UREA NITROGEN 17 mg/dL (7-18); CALCIUM 8.5 MG/DL (8.5-10.1); CARBON DIOXIDE 24 MMOL/L (21-32); CHLORIDE 107 MMOL/L (98-107); CHOLESTEROL 160 MG/DL (< 200); CREATININE 0.9 MG/DL (0.55-1.30); HDL CHOLESTEROL 72 MG/DL (40-60); POTASSIUM 3.8 MMOL/L (3.5-5.1); SODIUM 140 MMOL/L (136-145); TRIGLYCERIDES 41 MG/DL (30-150)
[2018-10-14] MEDS: NovoLOG Insulin Flexpen SUBQ SCH ×4 (06:13→20:40)
--- NOTE | 2018-10-14 07:30 | NUR ---
HAND-OFF: Report given to Debbie CABALLERO RN.
--- NOTE | 2018-10-14 07:30 | NUR ---
NURSE NOTES: received patient report from azael prieto. patient is on bed asleep. not in acute distress noted. with family member in the room.no arrythmias reported during the nohgt. bed is low and locked for safety. on vent at prescribed rate. will continue to care. Addendum: 10/14/18 at 0735 by NAKITA MARTINEZ RN disregard above note
--- NOTE | 2018-10-14 07:35 | NUR ---
NURSE NOTES: received patient report from azael prieto. patient is on bed asleep. not in acute distress noted. with family member in the room.no arrythmias reported during the night. bed is low and locked for safety. will continue to care.
[2018-10-14 08:00] VITALS: BP 102/66
[2018-10-14] MEDS: Heparin 5000 units/ml inj SUBQ SCH ×2 (08:34→20:39)
[2018-10-14] MEDS ORDERED: cefTRIAXone 1 GM in NS 55 ML IVPB SCH (09:00)
--- NOTE | 2018-10-14 11:45 | Consultation ---
History of Present Illness General Date patient seen: Oct 14, 2018 Chief Complaint: Syncope Present Illness HPI 67 year old female with developmental delay, seizure disorder was brought in by paramedics because of witnessed seizures. She has a history of seizure disorder and is on Dilantin. Her blood pressure was low as well in the field. Paramedics started her on IV fluids. Her blood pressure improved somewhat. She is admitted to Allergies: Coded Allergies: VANCOMYCIN (Verified Allergy, Intermediate, Hives, 10/31/15) SWELLING, ITCHING TOMATO (Verified Allergy, Unknown, 08/20/13) Medication History Scheduled Aspirin* (Ecotrin*), 325 MG ORAL DAILY, (Reported) Hydrochlorothiazide* (Hydrochlorothiazide*), 12.5 MG ORAL DAILY, (Reported) Levetiracetam (Levetiracetam), 250 MG ORAL Q12HR Levetiracetam (Keppra), 1,000 MG NG Q12HR Metformin Hcl* (Metformin Hcl*), 500 MG ORAL TWICE A DAY, (Reported) Midodrine (Midodrine HCl), 10 MG ORAL THREE TIMES A DAY Phenytoin Sodium Extended* (Dilantin*), 300 MG ORAL BEDTIME, (Reported) Potassium Chloride (Potassium Chloride), 10 MEQ ORAL DAILY, (Reported) Miscellaneous Medications Megestrol Acetate (Megestrol Acetate), 20 MG ORAL, (Reported) Patient History Healthcare decision maker Resuscitation status Full Code Advanced Directive on File Past Medical/Surgical History Past Medical/Surgical History: (1) Epileptic seizure, generalized (2) CAD (coronary artery disease) (3) HTN (hypertension) (4) Development delay (5) Diabetes mellitus, type II Review of Systems All Other Systems: negative except mentioned in HPI Physical Exam General Appearance: WD/WN Lines, tubes and drains: peripheral HEENT: normocephalic, atraumatic Neck: non-tender, normal alignment Respiratory/Chest: chest wall non-tender, lungs clear Cardiovascular/Chest: normal peripheral pulses, normal rate Abdomen: normal bowel sounds Genitourinary/Rectal: normal genital exam Last 24 Hour Vital Signs Date Time Temp Pulse Resp B/P (MAP) Pulse Ox O2 Delivery O2 Flow Rate FiO2 10/14/18 09:00 Room Air 10/14/18 08:00 98.1 91 19 102/66 (78) 100 10/14/18 07:49 84 10/14/18 04:00 98.0 92 18 133/69 (90) 99 10/14/18 03:34 88 10/14/18 00:43 Room Air 10/14/18 00:21 92 10/14/18 00:20 97.9 96 20 143/90 (107) 100 10/14/18 00:15 97.3 82 14 149/93 97 Room Air 10/13/18 23:41 97.3 79 14 149/93 97 Room Air 10/13/18 20:45 97.3 72 14 112/65 97 Room Air 10/13/18 20:36 97.3 80 14 78/48 (58) 97 Room Air Intake and Output 10/13/18 10/14/18 19:00 07:00 Intake Total 2000 ml Balance 2000 ml Intake IV Total 2000 ml # Voids 3 # Bowel Movements 4 Laboratory Tests Test 10/13/18 21:00 10/14/18 03:20 White Blood Count 5.9 K/UL (4.8-10.8) 8.7 K/UL (4.8-10.8) Red Blood Count 4.51 M/UL (4.20-5.40) 4.46 M/UL (4.20-5.40) Hemoglobin 13.8 G/DL (12.0-16.0) 13.9 G/DL (12.0-16.0) Hematocrit 41.0 % (37.0-47.0) 41.3 % (37.0-47.0) Mean Corpuscular Volume 91 FL (80-99) 93 FL (80-99) Mean Corpuscular Hemoglobin 30.7 PG (27.0-31.0) 31.2 PG (27.0-31.0) H Mean Corpuscular Hemoglobin Concent 33.7 G/DL (32.0-36.0) 33.7 G/DL (32.0-36.0) Red Cell Distribution Width 11.1 % (11.6-14.8) L 12.0 % (11.6-14.8) Platelet Count 178 K/UL (150-450) 184 K/UL (150-450) Mean Platelet Volume 7.1 FL (6.5-10.1) 7.8 FL (6.5-10.1) Neutrophils (%) (Auto) 63.3 % (45.0-75.0) 83.9 % (45.0-75.0) H Lymphocytes (%) (Auto) 28.6 % (20.0-45.0) 10.4 % (20.0-45.0) L Monocytes (%) (Auto) 5.6 % (1.0-10.0) 5.1 % (1.0-10.0) Eosinophils (%) (Auto) 1.7 % (0.0-3.0) 0.4 % (0.0-3.0) Basophils (%) (Auto) 0.9 % (0.0-2.0) 0.2 % (0.0-2.0) Prothrombin Time 11.3 SEC (9.30-11.50) Prothromb Time International Ratio 1.1 (0.9-1.1) Activated Partial Thromboplast Time 26 SEC (23-33) Urine Color Yellow Urine Appearance Slightly cloudy Urine pH 5 (4.5-8.0) Urine Specific [place] 1.020 (1.005-1.035) Urine Protein 1+ (NEGATIVE) H Urine Glucose (UA) Negative (NEGATIVE) Urine Ketones Negative (NEGATIVE) Urine Blood 3+ (NEGATIVE) H Urine Nitrite Positive (NEGATIVE) H Urine Bilirubin Negative (NEGATIVE) Urine Urobilinogen 1 MG/DL (0.0-1.0) H Urine Leukocyte Esterase 1+ (NEGATIVE) H Urine RBC 2-4 /HPF (0 - 2) H Urine WBC 2-4 /HPF (0 - 2) Urine Squamous Epithelial Cells None /LPF (NONE/OCC) Urine Bacteria Many /HPF (NONE) H Sodium Level 139 MMOL/L (136-145) 140 MMOL/L (136-145) Potassium Level 3.6 MMOL/L (3.5-5.1) 3.8 MMOL/L (3.5-5.1) Chloride Level 106 MMOL/L (98-107) 107 MMOL/L (98-107) Carbon Dioxide Level 26 MMOL/L (21-32) 24 MMOL/L (21-32) Anion Gap 7 mmol/L (5-15) 9 mmol/L (5-15) Blood Urea Nitrogen 18 mg/dL (7-18) 17 mg/dL (7-18) Creatinine 0.9 MG/DL (0.55-1.30) 0.9 MG/DL (0.55-1.30) Estimat Glomerular Filtration Rate > 60 mL/min (>60) > 60 mL/min (>60) Glucose Level 116 MG/DL (74-106) H 150 MG/DL (74-106) H Lactic Acid Level 1.60 mmol/L (0.4-2.0) Calcium Level 8.8 MG/DL (8.5-10.1) 8.5 MG/DL (8.5-10.1) Magnesium Level 1.8 MG/DL (1.8-2.4) Total Bilirubin 0.4 MG/DL (0.2-1.0) 0.3 MG/DL (0.2-1.0) Aspartate Amino Transf (AST/SGOT) 23 U/L (15-37) 26 U/L (15-37) Alanine Aminotransferase (ALT/SGPT) 13 U/L (12-78) 14 U/L (12-78) Alkaline Phosphatase 86 U/L (46-116) 105 U/L (46-116) Total Creatine Kinase 52 U/L (26-308) Troponin I 0.003 ng/mL (0.000-0.056) Pro-B-Type Natriuretic Peptide 109 pg/mL (0-125) Total Protein 6.7 G/DL (6.4-8.2) 6.8 G/DL (6.4-8.2) Albumin 3.4 G/DL (3.4-5.0) 3.4 G/DL (3.4-5.0) Globulin 3.3 g/dL 3.4 g/dL Albumin/Globulin Ratio 1.0 (1.0-2.7) 1.0 (1.0-2.7) Lipase 128 U/L (73-393) Phenytoin (Dilantin) Level < 0.5 ug/mL (10-20) L Triglycerides Level 41 MG/DL (30-150) Cholesterol Level 160 MG/DL (< 200) LDL Cholesterol 76 mg/dL (<100) HDL Cholesterol 72 MG/DL (40-60) H Cholesterol/HDL Ratio 2.2 (3.3-4.4) L Height (Feet): 5 Height (Inches): 3.00 Weight (Pounds): 110 Medications Current Medications Medications (Trade) Dose Ordered Sig/Blanca Route PRN Reason Start Time Stop Time Status Last Admin Dose Admin Acetaminophen (Tylenol) 650 mg Q4H PRN ORAL fever 10/13/18 22:15 11/12/18 22:14 Ceftriaxone Sodium 1 gm/ Sodium Chloride 55 ml @ 110 mls/hr DAILY IVPB 10/14/18 09:00 10/21/18 08:59 10/14/18 09:37 Dextrose (Dextrose 50%) 25 ml Q30M PRN IV Hypoglycemia 10/13/18 22:15 11/12/18 22:14 Dextrose (Dextrose 50%) 50 ml Q30M PRN IV Hypoglycemia 10/13/18 22:15 11/12/18 22:14 Heparin Sodium (Porcine) (Heparin 5000 units/ml) 5,000 units EVERY 12 HOURS SUBQ 10/14/18 09:00 11/13/18 08:59 10/14/18 08:34 Insulin Aspart (NovoLOG) BEFORE MEALS AND HS SUBQ 10/14/18 06:30 11/13/18 06:29 10/14/18 06:13 Levetiracetam (Keppra) 250 mg Q12HR ORAL 10/14/18 09:00 11/13/18 08:59 10/14/18 08:32 Lorazepam (Ativan 2mg/ml 1ml) 0.5 mg Q4H PRN IV For Anxiety 10/13/18 22:15 10/20/18 22:14 Morphine Sulfate (Morphine Sulfate) 1 mg EVERY 4 HOURS PRN IVP For Pain 10/13/18 22:15 10/20/18 22:14 Ondansetron HCl (Zofran) 4 mg Q6H PRN IVP Nausea & Vomiting 10/13/18 22:15 11/12/18 22:14 Phenytoin (Dilantin) 300 mg BEDTIME ORAL 10/14/18 21:00 11/13/18 20:59 Polyethylene Glycol (Miralax) 17 gm HSPRN PRN ORAL Constipation 10/13/18 22:15 11/12/18 22:14 Zolpidem Tartrate (Ambien) 5 mg HSPRN PRN ORAL Insomnia 10/13/18 22:15 10/20/18 22:14 Assessment/Plan Problem List: (1) UTI (urinary tract infection) ICD Codes: N39.0 - Urinary tract infection, site not specified SNOMED: 44927929 (2) Seizure disorder, generalized convulsive, intractable ICD Codes: G40.319 - Generalized idiopathic epilepsy and epileptic syndromes, intractable, without status epilepticus SNOMED: 85738338 (3) Subtherapeutic serum dilantin level ICD Codes: R78.89 - Finding of other specified substances, not normally found in blood SNOMED: 532101141 (4) Hypotension ICD Codes: I95.9 - Hypotension, unspecified SNOMED: 04030464 (5) CAD (coronary artery disease) ICD Codes: I25.10 - Atherosclerotic heart disease of [place] coronary artery without angina pectoris SNOMED: 50516360 (6) Diabetes mellitus, type II ICD Codes: E11.9 - Type 2 diabetes mellitus without complications SNOMED: 31893940 (7) Development delay ICD Codes: R62.50 - Unspecified lack of expected normal physiological development in childhood SNOMED: 833233861 (8) HTN (hypertension) ICD Codes: I10 - HTN (hypertension) SNOMED: 72518080 Assessment/Plan: resume dilantin check urine cultures seizure precaution neuro consult when available might go med/surg Juliette Bustos MD Oct 14, 2018 11:45
[2018-10-14 12:00] VITALS: BP 113/68
--- NOTE | 2018-10-14 12:50 | Diagnostic Imaging Report ---
Indication: Chest pain Technique: One view of the chest Comparison: 09/04/2017 Findings: Lungs and pleural spaces are clear. The heart size is normal. The aorta is tortuous and ectatic. There is no significant interim change Impression: No acute process
--- NOTE | 2018-10-14 13:29 | NUR ---
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 TRANSIENT HYPOTENSION 50/40 VS: BP 78/48, P 80, T 97.3, RR 14, SpO2 97 GLUCOSE 116, UR- BLOOD 3+, NITRITE- Positive, BACTERIA- Many IS:PHENYTOIN 120ml IVPB NS x1L IV PLAN: RESUME DILANTIN URINE CULTURES SEIZURE PRECAUTIONS ADMITTED TO SDU DCP: RETURN HOME
--- NOTE | 2018-10-14 15:13 | NUR ---
INSURANCE UPDATED CLINICALS and REVIEW HAVE BEEN FAXED TO: PLEASE FAX THE REVIEW AND CLINICAL TO YOVANA/ MAMADOU CALLED PRE CERT [phone] REPORTED TO: YOKO CEDILLO FULLY DELEGATED FAX CLINICALS TO: [phone]
[2018-10-14 16:00] VITALS: BP 127/96
--- NOTE | 2018-10-14 17:12 | Consultation ---
History of Present Illness General Date patient seen: Oct 14, 2018 Chief Complaint: Syncope Present Illness HPI 67 y/o F with hx of developmental delay, Dm2, HTN, seizure disorder was brought to ED on 10/13 because of witnessed seizures and hypotension. BP improved with IVFs given by paramedics. Of note, patient was admitted last August 2017 with breakthrough seizure. ness Allergies: Coded Allergies: VANCOMYCIN (Verified Allergy, Intermediate, Hives, 10/31/15) SWELLING, ITCHING TOMATO (Verified Allergy, Unknown, 08/20/13) Medication History Scheduled Aspirin* (Ecotrin*), 325 MG ORAL DAILY, (Reported) Hydrochlorothiazide* (Hydrochlorothiazide*), 12.5 MG ORAL DAILY, (Reported) Levetiracetam (Levetiracetam), 250 MG ORAL Q12HR Levetiracetam (Keppra), 1,000 MG NG Q12HR Metformin Hcl* (Metformin Hcl*), 500 MG ORAL TWICE A DAY, (Reported) Midodrine (Midodrine HCl), 10 MG ORAL THREE TIMES A DAY Phenytoin Sodium Extended* (Dilantin*), 300 MG ORAL BEDTIME, (Reported) Potassium Chloride (Potassium Chloride), 10 MEQ ORAL DAILY, (Reported) Miscellaneous Medications Megestrol Acetate (Megestrol Acetate), 20 MG ORAL, (Reported) Patient History Healthcare decision maker Resuscitation status Full Code Advanced Directive on File Patient History Narrative . Pmhx: as above Shx: reviewed Fhx: non contributory Physical Exam Physical Exam Narrative General Appearance: no apparent distress, alert, non-toxic, other - Short stature, Chronically Ill Head: normocephalic, atraumatic Eyes: bilateral eye normal inspection, bilateral eye PERRL, bilateral eye EOMI ENT: moist mucus membranes - Poor dentition no lingual trauma, gingival hypertrophy Neck: full range of motion, supple, no bony tend Respiratory: chest non-tender, lungs clear, normal breath sounds Cardiovascular : regular rate, rhythm Gastrointestinal: normal inspection, normal bowel sounds, non tender, no mass, non-distended Genitourinary: no CVA tenderness Musculoskeletal: back normal, normal range of motion, no calf tenderness Neurologic: alert, motor strength/tone normal, DTRs symmetric, sensory intact, oriented - X1 Psychiatric: other - Developmental delay but smiling Skin: no rash Last 24 Hour Vital Signs Date Time Temp Pulse Resp B/P (MAP) Pulse Ox O2 Delivery O2 Flow Rate FiO2 10/14/18 16:12 92 10/14/18 12:49 84 10/14/18 12:00 99.0 93 21 113/68 (83) 100 10/14/18 09:00 Room Air 10/14/18 08:00 98.1 91 19 102/66 (78) 100 10/14/18 07:49 84 10/14/18 04:00 98.0 92 18 133/69 (90) 99 10/14/18 03:34 88 10/14/18 00:43 Room Air 10/14/18 00:21 92 10/14/18 00:20 97.9 96 20 143/90 (107) 100 10/14/18 00:15 97.3 82 14 149/93 97 Room Air 10/13/18 23:41 97.3 79 14 149/93 97 Room Air 10/13/18 20:45 97.3 72 14 112/65 97 Room Air 10/13/18 20:36 97.3 80 14 78/48 (58) 97 Room Air Intake and Output 10/13/18 10/14/18 18:59 06:59 Intake Total 2000 ml Balance 2000 ml Intake IV Total 2000 ml # Voids 3 # Bowel Movements 4 Laboratory Tests Test 10/13/18 21:00 10/14/18 03:20 White Blood Count 5.9 K/UL (4.8-10.8) 8.7 K/UL (4.8-10.8) Red Blood Count 4.51 M/UL (4.20-5.40) 4.46 M/UL (4.20-5.40) Hemoglobin 13.8 G/DL (12.0-16.0) 13.9 G/DL (12.0-16.0) Hematocrit 41.0 % (37.0-47.0) 41.3 % (37.0-47.0) Mean Corpuscular Volume 91 FL (80-99) 93 FL (80-99) Mean Corpuscular Hemoglobin 30.7 PG (27.0-31.0) 31.2 PG (27.0-31.0) H Mean Corpuscular Hemoglobin Concent 33.7 G/DL (32.0-36.0) 33.7 G/DL (32.0-36.0) Red Cell Distribution Width 11.1 % (11.6-14.8) L 12.0 % (11.6-14.8) Platelet Count 178 K/UL (150-450) 184 K/UL (150-450) Mean Platelet Volume 7.1 FL (6.5-10.1) 7.8 FL (6.5-10.1) Neutrophils (%) (Auto) 63.3 % (45.0-75.0) 83.9 % (45.0-75.0) H Lymphocytes (%) (Auto) 28.6 % (20.0-45.0) 10.4 % (20.0-45.0) L Monocytes (%) (Auto) 5.6 % (1.0-10.0) 5.1 % (1.0-10.0) Eosinophils (%) (Auto) 1.7 % (0.0-3.0) 0.4 % (0.0-3.0) Basophils (%) (Auto) 0.9 % (0.0-2.0) 0.2 % (0.0-2.0) Prothrombin Time 11.3 SEC (9.30-11.50) Prothromb Time International Ratio 1.1 (0.9-1.1) Activated Partial Thromboplast Time 26 SEC (23-33) Urine Color Yellow Urine Appearance Slightly cloudy Urine pH 5 (4.5-8.0) Urine Specific [place] 1.020 (1.005-1.035) Urine Protein 1+ (NEGATIVE) H Urine Glucose (UA) Negative (NEGATIVE) Urine Ketones Negative (NEGATIVE) Urine Blood 3+ (NEGATIVE) H Urine Nitrite Positive (NEGATIVE) H Urine Bilirubin Negative (NEGATIVE) Urine Urobilinogen 1 MG/DL (0.0-1.0) H Urine Leukocyte Esterase 1+ (NEGATIVE) H Urine RBC 2-4 /HPF (0 - 2) H Urine WBC 2-4 /HPF (0 - 2) Urine Squamous Epithelial Cells None /LPF (NONE/OCC) Urine Bacteria Many /HPF (NONE) H Sodium Level 139 MMOL/L (136-145) 140 MMOL/L (136-145) Potassium Level 3.6 MMOL/L (3.5-5.1) 3.8 MMOL/L (3.5-5.1) Chloride Level 106 MMOL/L (98-107) 107 MMOL/L (98-107) Carbon Dioxide Level 26 MMOL/L (21-32) 24 MMOL/L (21-32) Anion Gap 7 mmol/L (5-15) 9 mmol/L (5-15) Blood Urea Nitrogen 18 mg/dL (7-18) 17 mg/dL (7-18) Creatinine 0.9 MG/DL (0.55-1.30) 0.9 MG/DL (0.55-1.30) Estimat Glomerular Filtration Rate > 60 mL/min (>60) > 60 mL/min (>60) Glucose Level 116 MG/DL (74-106) H 150 MG/DL (74-106) H Lactic Acid Level 1.60 mmol/L (0.4-2.0) Calcium Level 8.8 MG/DL (8.5-10.1) 8.5 MG/DL (8.5-10.1) Magnesium Level 1.8 MG/DL (1.8-2.4) Total Bilirubin 0.4 MG/DL (0.2-1.0) 0.3 MG/DL (0.2-1.0) Aspartate Amino Transf (AST/SGOT) 23 U/L (15-37) 26 U/L (15-37) Alanine Aminotransferase (ALT/SGPT) 13 U/L (12-78) 14 U/L (12-78) Alkaline Phosphatase 86 U/L (46-116) 105 U/L (46-116) Total Creatine Kinase 52 U/L (26-308) Troponin I 0.003 ng/mL (0.000-0.056) Pro-B-Type Natriuretic Peptide 109 pg/mL (0-125) Total Protein 6.7 G/DL (6.4-8.2) 6.8 G/DL (6.4-8.2) Albumin 3.4 G/DL (3.4-5.0) 3.4 G/DL (3.4-5.0) Globulin 3.3 g/dL 3.4 g/dL Albumin/Globulin Ratio 1.0 (1.0-2.7) 1.0 (1.0-2.7) Lipase 128 U/L (73-393) Phenytoin (Dilantin) Level < 0.5 ug/mL (10-20) L Triglycerides Level 41 MG/DL (30-150) Cholesterol Level 160 MG/DL (< 200) LDL Cholesterol 76 mg/dL (<100) HDL Cholesterol 72 MG/DL (40-60) H Cholesterol/HDL Ratio 2.2 (3.3-4.4) L Height (Feet): 5 Height (Inches): 3.00 Weight (Pounds): 110 Medications Current Medications Medications (Trade) Dose Ordered Sig/Blanca Route PRN Reason Start Time Stop Time Status Last Admin Dose Admin Acetaminophen (Tylenol) 650 mg Q4H PRN ORAL fever 10/13/18 22:15 11/12/18 22:14 Ceftriaxone Sodium 1 gm/ Sodium Chloride 55 ml @ 110 mls/hr DAILY IVPB 10/14/18 09:00 10/21/18 08:59 10/14/18 09:37 Dextrose (Dextrose 50%) 25 ml Q30M PRN IV Hypoglycemia 10/13/18 22:15 11/12/18 22:14 Dextrose (Dextrose 50%) 50 ml Q30M PRN IV Hypoglycemia 10/13/18 22:15 11/12/18 22:14 Heparin Sodium (Porcine) (Heparin 5000 units/ml) 5,000 units EVERY 12 HOURS SUBQ 10/14/18 09:00 11/13/18 08:59 10/14/18 08:34 Insulin Aspart (NovoLOG) BEFORE MEALS AND HS SUBQ 10/14/18 06:30 11/13/18 06:29 10/14/18 06:13 Levetiracetam (Keppra) 500 mg Q12HR ORAL 10/14/18 21:00 11/13/18 08:59 Lorazepam (Ativan 2mg/ml 1ml) 0.5 mg Q4H PRN IV For Anxiety 10/13/18 22:15 10/20/18 22:14 Morphine Sulfate (Morphine Sulfate) 1 mg EVERY 4 HOURS PRN IVP For Pain 10/13/18 22:15 10/20/18 22:14 Ondansetron HCl (Zofran) 4 mg Q6H PRN IVP Nausea & Vomiting 10/13/18 22:15 11/12/18 22:14 Phenytoin (Dilantin) 300 mg BEDTIME ORAL 10/14/18 21:00 11/13/18 20:59 Polyethylene Glycol (Miralax) 17 gm HSPRN PRN ORAL Constipation 10/13/18 22:15 11/12/18 22:14 Zolpidem Tartrate (Ambien) 5 mg HSPRN PRN ORAL Insomnia 10/13/18 22:15 10/20/18 22:14 Assessment/Plan Assessment/Plan: Abx: Ceftriaxone 10/14- Assessment: Breakthrough seizure- Afebrile No leukocytosis -u/a no pyuria, nit +, leuk +1 -r/o UTI -CXR: no acute process developmental delay Dm2 HTN seizure disorder Plan: -Continue empiric Ceftriaxone #1 pending UCx -if neg, will d/c -f/u cx -Monitor CBC/CMP, temperatures Thank you for this consultation. Will continue to follow along with you. Discussed with Rani Mann M.D. Oct 14, 2018 17:12
--- NOTE | 2018-10-14 17:32 | Internal Med Progress Note ---
Subjective Date of Service: Oct 14, 2018 Physician Name Tam Toscano Attending Physician Imtiaz Arroyo MD Current Medications Medications (Trade) Dose Ordered Sig/Blanca Route PRN Reason Start Time Stop Time Status Last Admin Dose Admin Acetaminophen (Tylenol) 650 mg Q4H PRN ORAL fever 10/13/18 22:15 11/12/18 22:14 Ceftriaxone Sodium 1 gm/ Sodium Chloride 55 ml @ 110 mls/hr DAILY IVPB 10/14/18 09:00 10/21/18 08:59 10/14/18 09:37 Dextrose (Dextrose 50%) 25 ml Q30M PRN IV Hypoglycemia 10/13/18 22:15 11/12/18 22:14 Dextrose (Dextrose 50%) 50 ml Q30M PRN IV Hypoglycemia 10/13/18 22:15 11/12/18 22:14 Heparin Sodium (Porcine) (Heparin 5000 units/ml) 5,000 units EVERY 12 HOURS SUBQ 10/14/18 09:00 11/13/18 08:59 10/14/18 08:34 Insulin Aspart (NovoLOG) BEFORE MEALS AND HS SUBQ 10/14/18 06:30 11/13/18 06:29 10/14/18 06:13 Levetiracetam (Keppra) 500 mg Q12HR ORAL 10/14/18 21:00 11/13/18 08:59 Lorazepam (Ativan 2mg/ml 1ml) 0.5 mg Q4H PRN IV For Anxiety 10/13/18 22:15 10/20/18 22:14 Morphine Sulfate (Morphine Sulfate) 1 mg EVERY 4 HOURS PRN IVP For Pain 10/13/18 22:15 10/20/18 22:14 Ondansetron HCl (Zofran) 4 mg Q6H PRN IVP Nausea & Vomiting 10/13/18 22:15 11/12/18 22:14 Phenytoin (Dilantin) 300 mg BEDTIME ORAL 10/14/18 21:00 11/13/18 20:59 Polyethylene Glycol (Miralax) 17 gm HSPRN PRN ORAL Constipation 10/13/18 22:15 11/12/18 22:14 Zolpidem Tartrate (Ambien) 5 mg HSPRN PRN ORAL Insomnia 10/13/18 22:15 10/20/18 22:14 Allergies: Coded Allergies: VANCOMYCIN (Verified Allergy, Intermediate, Hives, 10/31/15) SWELLING, ITCHING TOMATO (Verified Allergy, Unknown, 08/20/13) ROS Limited/Unobtainable: Yes Subjective 67 YO F with history of seizure disorder admitted with breakthrough seizure. Cover for Int Med-Dr Arroyo. ADA Objective Last Vital Signs Date Time Temp Pulse Resp B/P (MAP) Pulse Ox O2 Delivery O2 Flow Rate FiO2 10/14/18 16:12 92 10/14/18 16:00 98.2 20 127/96 (106) 100 10/14/18 09:00 Room Air Laboratory Tests Test 10/13/18 21:00 10/14/18 03:20 White Blood Count 5.9 K/UL (4.8-10.8) 8.7 K/UL (4.8-10.8) Red Blood Count 4.51 M/UL (4.20-5.40) 4.46 M/UL (4.20-5.40) Hemoglobin 13.8 G/DL (12.0-16.0) 13.9 G/DL (12.0-16.0) Hematocrit 41.0 % (37.0-47.0) 41.3 % (37.0-47.0) Mean Corpuscular Volume 91 FL (80-99) 93 FL (80-99) Mean Corpuscular Hemoglobin 30.7 PG (27.0-31.0) 31.2 PG (27.0-31.0) H Mean Corpuscular Hemoglobin Concent 33.7 G/DL (32.0-36.0) 33.7 G/DL (32.0-36.0) Red Cell Distribution Width 11.1 % (11.6-14.8) L 12.0 % (11.6-14.8) Platelet Count 178 K/UL (150-450) 184 K/UL (150-450) Mean Platelet Volume 7.1 FL (6.5-10.1) 7.8 FL (6.5-10.1) Neutrophils (%) (Auto) 63.3 % (45.0-75.0) 83.9 % (45.0-75.0) H Lymphocytes (%) (Auto) 28.6 % (20.0-45.0) 10.4 % (20.0-45.0) L Monocytes (%) (Auto) 5.6 % (1.0-10.0) 5.1 % (1.0-10.0) Eosinophils (%) (Auto) 1.7 % (0.0-3.0) 0.4 % (0.0-3.0) Basophils (%) (Auto) 0.9 % (0.0-2.0) 0.2 % (0.0-2.0) Prothrombin Time 11.3 SEC (9.30-11.50) Prothromb Time International Ratio 1.1 (0.9-1.1) Activated Partial Thromboplast Time 26 SEC (23-33) Urine Color Yellow Urine Appearance Slightly cloudy Urine pH 5 (4.5-8.0) Urine Specific [place] 1.020 (1.005-1.035) Urine Protein 1+ (NEGATIVE) H Urine Glucose (UA) Negative (NEGATIVE) Urine Ketones Negative (NEGATIVE) Urine Blood 3+ (NEGATIVE) H Urine Nitrite Positive (NEGATIVE) H Urine Bilirubin Negative (NEGATIVE) Urine Urobilinogen 1 MG/DL (0.0-1.0) H Urine Leukocyte Esterase 1+ (NEGATIVE) H Urine RBC 2-4 /HPF (0 - 2) H Urine WBC 2-4 /HPF (0 - 2) Urine Squamous Epithelial Cells None /LPF (NONE/OCC) Urine Bacteria Many /HPF (NONE) H Sodium Level 139 MMOL/L (136-145) 140 MMOL/L (136-145) Potassium Level 3.6 MMOL/L (3.5-5.1) 3.8 MMOL/L (3.5-5.1) Chloride Level 106 MMOL/L (98-107) 107 MMOL/L (98-107) Carbon Dioxide Level 26 MMOL/L (21-32) 24 MMOL/L (21-32) Anion Gap 7 mmol/L (5-15) 9 mmol/L (5-15) Blood Urea Nitrogen 18 mg/dL (7-18) 17 mg/dL (7-18) Creatinine 0.9 MG/DL (0.55-1.30) 0.9 MG/DL (0.55-1.30) Estimat Glomerular Filtration Rate > 60 mL/min (>60) > 60 mL/min (>60) Glucose Level 116 MG/DL (74-106) H 150 MG/DL (74-106) H Lactic Acid Level 1.60 mmol/L (0.4-2.0) Calcium Level 8.8 MG/DL (8.5-10.1) 8.5 MG/DL (8.5-10.1) Magnesium Level 1.8 MG/DL (1.8-2.4) Total Bilirubin 0.4 MG/DL (0.2-1.0) 0.3 MG/DL (0.2-1.0) Aspartate Amino Transf (AST/SGOT) 23 U/L (15-37) 26 U/L (15-37) Alanine Aminotransferase (ALT/SGPT) 13 U/L (12-78) 14 U/L (12-78) Alkaline Phosphatase 86 U/L (46-116) 105 U/L (46-116) Total Creatine Kinase 52 U/L (26-308) Troponin I 0.003 ng/mL (0.000-0.056) Pro-B-Type Natriuretic Peptide 109 pg/mL (0-125) Total Protein 6.7 G/DL (6.4-8.2) 6.8 G/DL (6.4-8.2) Albumin 3.4 G/DL (3.4-5.0) 3.4 G/DL (3.4-5.0) Globulin 3.3 g/dL 3.4 g/dL Albumin/Globulin Ratio 1.0 (1.0-2.7) 1.0 (1.0-2.7) Lipase 128 U/L (73-393) Phenytoin (Dilantin) Level < 0.5 ug/mL (10-20) L Triglycerides Level 41 MG/DL (30-150) Cholesterol Level 160 MG/DL (< 200) LDL Cholesterol 76 mg/dL (<100) HDL Cholesterol 72 MG/DL (40-60) H Cholesterol/HDL Ratio 2.2 (3.3-4.4) L Intake and Output 10/13/18 10/14/18 18:59 06:59 Intake Total 2000 ml Balance 2000 ml Intake IV Total 2000 ml # Voids 3 # Bowel Movements 4 Objective Physical Exam Physical Exam Narrative General Appearance: no apparent distress, alert, non-toxic, other - Short stature, Chronically Ill Head: normocephalic, atraumatic Eyes: bilateral eye normal inspection, bilateral eye PERRL, bilateral eye EOMI ENT: moist mucus membranes - Poor dentition no lingual trauma, gingival hypertrophy Neck: full range of motion, supple, no bony tend Respiratory: chest non-tender, lungs clear, normal breath sounds Cardiovascular : regular rate, rhythm Gastrointestinal: normal inspection, normal bowel sounds, non tender, no mass, non-distended Genitourinary: no CVA tenderness Musculoskeletal: back normal, normal range of motion, no calf tenderness Neurologic: alert, motor strength/tone normal, DTRs symmetric, sensory intact, oriented - X1 Psychiatric: other - Developmental delay but smiling Skin: no rash Assessment/Plan Problem List: (1) Diabetes mellitus, type II Assessment & Plan: Continue novolog sliding scale (2) Epileptic seizure, generalized Assessment & Plan: Breakthrough seizure? Await neurology consult. Continue Dilantin and Keppra (3) HTN (hypertension) (4) Development delay Status: progressing Tam Toscano MD Oct 14, 2018 17:32
--- NOTE | 2018-10-14 18:50 | Cardiology Report ---
APPROVED REPORT EKG Measurement Heart [id number] ID [id number] Sinus rhythm with 1st degree AV block Low voltage QRS Right bundle branch block Possible Lateral infarct, age undetermined Abnormal ECG
--- NOTE | 2018-10-14 19:10 | NUR ---
NURSE NOTES: Pt report received from Debbie MEZA ADA. pt appears to be resting in bed in stable condition. 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 pt is satting at 99% on room air and shows no signs symptoms of acute resp distress at the moment. pt has a R AC 20G able to flush, no distress noted. pt bed rails up times 3, call light within reach, bed armed, bed locked and low. call light within reach. pt family member at bed side. will continue plan of care.
--- NOTE | 2018-10-14 19:21 | NUR ---
HAND-OFF: Report given to azael prieto.
[2018-10-14 20:00] VITALS: BP 144/90
[2018-10-14] MEDS ORDERED: NS w/KCl 20mEq 1000ml 1,000 ML IV SCH (20:15)
[2018-10-14] MEDS ORDERED: Phenytoin 100mg cap ORAL SCH (21:00)
--- NOTE | 2018-10-14 21:00 | History and Physical Report ---
DATE OF ADMISSION: 10/13/2018 CHIEF COMPLAINT: Weakness, syncope. HISTORY OF PRESENT ILLNESS: This is a 67-year-old female with past medical history significant for seizure disorder, developmental delay, acute encephalopathy in the past, history of diabetes type 2, hypertension, bacteremia with Staph epidermidis, high-grade bacteremia who presented to the hospital from nursing facility after she was noted to have altered mental status. The patient has a history of seizure disorder on Dilantin and she was found to be altered than usual and presumably possible grand mal seizure. Paramedics was called in and the patient was found to have elevated blood pressure with tachycardia and subsequently the patient was transferred to the hospital. Shortly after initial evaluation in the emergency, the patient was admitted to a monitored unit due to the syncope, tachycardia, and possible breakthrough seizure. PAST MEDICAL HISTORY PAST SURGICAL HISTORY: As above history of seizure disorder, hypertension, diabetes type 2, mental retardation, memory loss. MEDICATIONS: Medications at home, please refer to medication reconciliation. ALLERGIES: To vancomycin as well as tomatoes. SOCIAL HISTORY: No smoking, alcohol, or drugs. FAMILY HISTORY: Noncontributory. REVIEW OF SYSTEMS: Mostly as above denies any dysuria, frequency, hematuria. Denies any hemoptysis or hematochezia. Denies any bright red blood per rectum. History is very limited secondary to most history is taken from caregiver at the bedside. PHYSICAL EXAMINATION: VITAL SIGNS: On admission, temperature 97.3, pulse of 80, respirations 14, blood pressure 78/48. GENERAL: The patient awake and responsive, very weak and chronically ill looking. HEAD AND NECK: Pupils are equal and reactive to light. Extraocular movements intact. Neck was supple. No JVD. LUNGS: Decreased air entry at bases. No wheeze or rales. HEART: S1 and S2. Tachycardic. No murmurs or gallops. ABDOMEN: Soft, nondistended, nontender. Positive bowel sounds. EXTREMITIES: No cyanosis, clubbing, edema. NEUROLOGIC: Cranial nerves II to XII grossly intact. The patient is moving all extremities. The patient with development delay with smiling, however, can follow commands appropriately. LABORATORY AND DIAGNOSTIC DATA: On admission from the ER, WBC of 5.9, hemoglobin 13, hematocrit 41, and platelets is 178. Sodium 139, potassium 3.3, chloride 106, bicarb 26, BUN 18, creatinine 0.9, and glucose 116. Troponin 0.003. Lipase is 128. Dilantin level less than 0.5. UA is +1 protein, +3 blood, +1 leukocytes, 2 to 4 rbc's, many bacteria. PT of 11, INR 1.1, PTT of 26. Chest x-ray was done in the ER, no acute process ASSESSMENT: 1. Severe dehydration. 2. Altered mental status possibly due to syncope. 3. Subtherapeutic serum Dilantin level. 4. Seizure disorder. 5. Hypotension. 6. Acute UTI. 7. Diabetes type 2. 8. Hypertension presently hypotensive. PLAN: 1. Admit the patient to monitor unit. 2. Broad-spectrum antibiotic with Rocephin. 3. Code status, Full Code. 4. DVT prophylaxis with heparin subcutaneous. 5. We will follow up with seizure precaution. 6. Aggressive hydration and encourage oral intake. Imtiaz Arroyo M.D. DR: Sandra JOB#: [id number] CC:
[2018-10-14] MEDS: NS w/KCl 20mEq 1000ml 1,000 ML IV SCH (22:45)
--- NOTE | 2018-10-14 23:11 | NUR ---
NURSE NOTES:Patient transfer and report received from Gal Schafer from SDU Telemetry .Patient rom 244 bed 2 to 403 bed 1 Patient denies any pain at this time . no s/s of distress . RAC g#20 NS with KCL 20 meq @ 75 cc/hr. infusing well .Seizure precautions . Patient no activity of seizure at this time . bed padded x2. Patient no personal belongings , family members at bedside . call light within reach . bed in low position at all times . bed alarm active. will continue to monitor
--- NOTE | 2018-10-14 23:11 | NUR ---
HAND-OFF: Report given to Joy MEZAsurgery consultant unit. pt has been transferred with all all belongings.
--- NOTE | 2018-10-14 23:28 | NUR ---
NURSE NOTES: called zulma, spoke with April. April spoke with Pharmacist Vikas. Pharmacist Vikas understands previous bag of NS with 20Meq K (2014) has not been finished yet and the 2244 NS with 20Meq K bag was made an error due to the transfer. will relay onto receiving RN. Addendum: 10/14/18 at 2337 by BRANDEE HI RN NURSE NOTES: called zulma, spoke with April. April spoke with Fransisca Bean. Pharmacist Vikas understands previous bag of 1L NS with 20Meq K bag (2014) at 75cc/hr has not been finished yet and the 2244 1L NS with 20Meq K at 75cc/hr bag was made an error due to the transfer. will relay onto receiving RN. NURSE
[2018-10-15] VITALS: BP 127/85
[2018-10-15] MEDS ORDERED: Morphine Sulfate 2mg/ml Inj(IV/IM USE ONLY) IVP PRN (01:00)
[2018-10-15] MEDS ORDERED: LORazepam Inj 2mg/ml 1ml IV PRN (02:15)
[2018-10-15] MEDS: NS w/KCl 20mEq 1000ml 1,000 ML IV SCH (03:07)
[2018-10-15 04:00] VITALS: BP 120/58
[2018-10-15] MEDS: NovoLOG Insulin Flexpen SUBQ SCH ×2 (06:30→11:30)
[2018-10-15 06:48] LABS: ANION GAP 8 mmol/L (5-15); BLOOD UREA NITROGEN 9 mg/dL (7-18); CALCIUM 8.5 MG/DL (8.5-10.1); CARBON DIOXIDE 24 MMOL/L (21-32); CHLORIDE 107 MMOL/L (98-107); CREATININE 0.7 MG/DL (0.55-1.30); POTASSIUM 3.7 MMOL/L (3.5-5.1); SODIUM 139 MMOL/L (136-145)
[2018-10-15 06:52] LABS: BASOPHILS % (AUTO) 0.5 % (0.0-2.0); EOSINOPHILS % (AUTO) 1.7 % (0.0-3.0); HEMATOCRIT 40.5 % (37.0-47.0); HEMOGLOBIN 13.6 G/DL (12.0-16.0); LYMPHOCYTES % (AUTO) 25.8 % (20.0-45.0); MEAN CORPUSCULAR VOLUME 92 FL (80-99); MONOCYTES % (AUTO) 9.6 % (1.0-10.0); NEUTROPHILS % (AUTO) 62.4 % (45.0-75.0); PLATELET COUNT 167 K/UL (150-450); RED BLOOD COUNT 4.42 M/UL (4.20-5.40); RED CELL DISTRIBUTION WIDTH 11.9 % (11.6-14.8); WHITE BLOOD COUNT 5.6 K/UL (4.8-10.8)
[2018-10-15 06:56] LABS: PHOSPHORUS 3.5 MG/DL (2.5-4.9)
--- NOTE | 2018-10-15 07:20 | NUR ---
HAND-OFF: Report given to Bar Schafer
--- NOTE | 2018-10-15 07:49 | NUR ---
HAND-OFF: Report given to BELEN Schafer
--- NOTE | 2018-10-15 07:49 | NUR ---
NURSE NOTES: Patient awake, alert x2; on room air, no sign of distress and shortness of breath; IV VAC [id number] running at 20cc; side rails padded for sizure percussion, bed at lowest position, breaks engaged; family member at the bed side; call light within reach; will keep monitoring blood sugar; will carry out plan of care.
[2018-10-15 09:00] VITALS: BP 141/89
[2018-10-15] MEDS ORDERED: Heparin 5000 units/ml inj SUBQ SCH (09:00)
[2018-10-15] MEDS ORDERED: cefTRIAXone 1 GM in NS 55 ML IVPB SCH (09:00)
--- NOTE | 2018-10-15 10:59 | NUR ---
NURSE NOTES: I received a call from Microbiology, Bethany, that patient's blood, Gram Positive Cocci. MD Arroyo, MD Bustos and MD Lewis are aware.
--- NOTE | 2018-10-15 11:59 | Internal Med Progress Note ---
Subjective Date of Service: Oct 15, 2018 Physician Name Tam Toscano Attending Physician Imtiaz Arroyo MD Current Medications Medications (Trade) Dose Ordered Sig/Blanca Route PRN Reason Start Time Stop Time Status Last Admin Dose Admin Acetaminophen (Tylenol) 650 mg Q4H PRN ORAL fever 10/15/18 02:15 11/12/18 22:14 Ceftriaxone Sodium 1 gm/ Sodium Chloride 55 ml @ 110 mls/hr DAILY IVPB 10/15/18 09:00 10/21/18 08:59 10/15/18 09:14 Dextrose (Dextrose 50%) 25 ml Q30M PRN IV Hypoglycemia 10/14/18 22:45 11/12/18 22:14 Dextrose (Dextrose 50%) 50 ml Q30M PRN IV Hypoglycemia 10/14/18 22:45 11/12/18 22:14 Heparin Sodium (Porcine) (Heparin 5000 units/ml) 5,000 units EVERY 12 HOURS SUBQ 10/15/18 09:00 11/13/18 08:59 10/15/18 09:14 Insulin Aspart (NovoLOG) BEFORE MEALS AND HS SUBQ 10/15/18 06:30 11/13/18 06:29 Levetiracetam (Keppra) 500 mg Q12HR ORAL 10/15/18 09:00 11/13/18 08:59 10/15/18 09:13 Lorazepam (Ativan 2mg/ml 1ml) 0.5 mg Q4H PRN IV For Anxiety 10/15/18 02:15 10/20/18 22:14 Morphine Sulfate (Morphine Sulfate) 1 mg EVERY 4 HOURS PRN IVP For Pain 10/15/18 01:00 10/20/18 22:14 Ondansetron HCl (Zofran) 4 mg Q6H PRN IVP Nausea & Vomiting 10/15/18 04:15 11/12/18 22:14 Phenytoin (Dilantin) 300 mg BEDTIME ORAL 10/15/18 21:00 11/13/18 20:59 Polyethylene Glycol (Miralax) 17 gm HSPRN PRN ORAL Constipation 10/15/18 22:15 11/12/18 22:14 Potassium Chloride/Sodium Chloride 1,000 ml @ 75 mls/hr [id number] IV 10/14/18 22:45 11/13/18 20:14 10/15/18 03:07 Zolpidem Tartrate (Ambien) 5 mg HSPRN PRN ORAL Insomnia 10/15/18 22:15 10/20/18 22:14 Allergies: Coded Allergies: VANCOMYCIN (Verified Allergy, Intermediate, Hives, 10/31/15) SWELLING, ITCHING TOMATO (Verified Allergy, Unknown, 08/20/13) ROS Limited/Unobtainable: No Constitutional: Reports: no symptoms HEENT: Reports: no symptoms Cardiovascular: Reports: no symptoms Respiratory: Reports: no symptoms Gastrointestinal/Abdominal: Reports: no symptoms Genitourinary: Reports: no symptoms Neurologic/Psychiatric: Reports: no symptoms Subjective 67 YO F with history of seizure disorder admitted with breakthrough seizure. Cover for Int Med-Dr Arroyo. Objective Last Vital Signs Date Time Temp Pulse Resp B/P (MAP) Pulse Ox O2 Delivery O2 Flow Rate FiO2 10/15/18 09:00 97.7 85 19 141/89 (106) 96 10/15/18 09:00 Room Air Laboratory Tests Test 10/15/18 05:45 White Blood Count 5.6 K/UL (4.8-10.8) Red Blood Count 4.42 M/UL (4.20-5.40) Hemoglobin 13.6 G/DL (12.0-16.0) Hematocrit 40.5 % (37.0-47.0) Mean Corpuscular Volume 92 FL (80-99) Mean Corpuscular Hemoglobin 30.8 PG (27.0-31.0) Mean Corpuscular Hemoglobin Concent 33.6 G/DL (32.0-36.0) Red Cell Distribution Width 11.9 % (11.6-14.8) Platelet Count 167 K/UL (150-450) Mean Platelet Volume 8.5 FL (6.5-10.1) Neutrophils (%) (Auto) 62.4 % (45.0-75.0) Lymphocytes (%) (Auto) 25.8 % (20.0-45.0) Monocytes (%) (Auto) 9.6 % (1.0-10.0) Eosinophils (%) (Auto) 1.7 % (0.0-3.0) Basophils (%) (Auto) 0.5 % (0.0-2.0) Sodium Level 139 MMOL/L (136-145) Potassium Level 3.7 MMOL/L (3.5-5.1) Chloride Level 107 MMOL/L (98-107) Carbon Dioxide Level 24 MMOL/L (21-32) Anion Gap 8 mmol/L (5-15) Blood Urea Nitrogen 9 mg/dL (7-18) Creatinine 0.7 MG/DL (0.55-1.30) Estimat Glomerular Filtration Rate > 60 mL/min (>60) Glucose Level 88 MG/DL (74-106) Calcium Level 8.5 MG/DL (8.5-10.1) Phosphorus Level 3.5 MG/DL (2.5-4.9) Magnesium Level 1.7 MG/DL (1.8-2.4) L Microbiology Date/Time Source Procedure Growth Status 10/13/18 21:10 Blood Blood Culture - Preliminary NO GROWTH AFTER 24 HOURS Resulted 10/13/18 21:00 Blood Blood Culture - Preliminary Resulted 10/13/18 21:00 Urine,Clean Catch Urine Culture - Preliminary Gram Negative Bacillus 1 Resulted Intake and Output 10/14/18 10/15/18 19:00 07:00 Intake Total 110 ml 1335 ml Balance 110 ml 1335 ml Intake Oral 660 ml IV Total 110 ml 675 ml # Voids 5 # Bowel Movements 4 Objective Physical Exam Physical Exam Narrative General Appearance: no apparent distress, alert, non-toxic, other - Short stature, Chronically Ill Head: normocephalic, atraumatic Eyes: bilateral eye normal inspection, bilateral eye PERRL, bilateral eye EOMI ENT: moist mucus membranes - Poor dentition no lingual trauma, gingival hypertrophy Neck: full range of motion, supple, no bony tend Respiratory: chest non-tender, lungs clear, normal breath sounds Cardiovascular : regular rate, rhythm Gastrointestinal: normal inspection, normal bowel sounds, non tender, no mass, non-distended Genitourinary: no CVA tenderness Musculoskeletal: back normal, normal range of motion, no calf tenderness Neurologic: alert, motor strength/tone normal, DTRs symmetric, sensory intact, oriented - X1 Psychiatric: other - Developmental delay but smiling Skin: no rash Assessment/Plan Problem List: (1) Diabetes mellitus, type II Assessment & Plan: Continue novolog sliding scale (2) Epileptic seizure, generalized Assessment & Plan: Breakthrough seizure? Await neurology consult. Continue Dilantin and Keppra (3) HTN (hypertension) (4) Development delay (5) UTI (urinary tract infection) Assessment & Plan: Gram neg leila. Await ID and sensitivity. Continue ceftriaxone per Tam Aguirre MD Oct 15, 2018 11:59
[2018-10-15 12:00] VITALS: BP 128/80
--- NOTE | 2018-10-15 12:14 | Pulmonology Progress Note ---
Assessment/Plan Problems: (1) UTI (urinary tract infection) (2) Seizure disorder, generalized convulsive, intractable (3) Subtherapeutic serum dilantin level (4) Hypotension (5) CAD (coronary artery disease) (6) Diabetes mellitus, type II (7) Development delay (8) HTN (hypertension) Assessment/Plan BC positive, ? contaminant? urine > 100K colonies await ID recommendations about blood cultures no more seizures/ Subjective ROS Limited/Unobtainable: No Constitutional: Reports: no symptoms HEENT: Repors: no symptoms Respiratory: Reports: no symptoms Allergies: Coded Allergies: VANCOMYCIN (Verified Allergy, Intermediate, Hives, 10/31/15) SWELLING, ITCHING TOMATO (Verified Allergy, Unknown, 08/20/13) Objective Last 24 Hour Vital Signs Date Time Temp Pulse Resp B/P (MAP) Pulse Ox O2 Delivery O2 Flow Rate FiO2 10/15/18 12:00 98.6 89 18 128/80 (96) 97 10/15/18 09:00 97.7 85 19 141/89 (106) 96 10/15/18 09:00 Room Air 10/15/18 04:00 98.4 79 20 120/58 (78) 98 10/15/18 00:00 99.0 102 18 127/85 (99) 99 10/14/18 21:00 Room Air 10/14/18 20:00 99.2 99 20 144/90 (108) 99 10/14/18 19:21 96 10/14/18 16:12 92 10/14/18 16:00 98.2 94 20 127/96 (106) 100 10/14/18 12:49 84 Intake and Output 10/14/18 10/15/18 19:00 07:00 Intake Total 110 ml 1335 ml Balance 110 ml 1335 ml Intake Oral 660 ml IV Total 110 ml 675 ml # Voids 5 # Bowel Movements 4 General Appearance: WD/WN HEENT: normocephalic, atraumatic Respiratory/Chest: chest wall non-tender, normal breath sounds Cardiovascular: normal peripheral pulses, normal rate Abdomen: normal bowel sounds, no organomegaly Genitourinary: normal external genitalia Extremities: no clubbing Skin: no rash Microbiology Date/Time Source Procedure Growth Status 10/13/18 21:10 Blood Blood Culture - Preliminary NO GROWTH AFTER 24 HOURS Resulted 10/13/18 21:00 Blood Blood Culture - Preliminary Resulted 10/13/18 21:00 Urine,Clean Catch Urine Culture - Preliminary Gram Negative Bacillus 1 Resulted Laboratory Tests 10/15/18 05:45: White Blood Count 5.6, Red Blood Count 4.42, Hemoglobin 13.6, Hematocrit 40.5, Mean Corpuscular Volume 92, Mean Corpuscular Hemoglobin 30.8, Mean Corpuscular Hemoglobin Concent 33.6, Red Cell Distribution Width 11.9, Platelet Count 167, Mean Platelet Volume 8.5, Neutrophils (%) (Auto) 62.4, Lymphocytes (%) (Auto) 25.8, Monocytes (%) (Auto) 9.6, Eosinophils (%) (Auto) 1.7, Basophils (%) (Auto ) 0.5, Sodium Level 139, Potassium Level 3.7, Chloride Level 107, Carbon Dioxide Level 24, Anion Gap 8, Blood Urea Nitrogen 9, Creatinine 0.7, Estimat Glomerular Filtration Rate > 60, Glucose Level 88, Calcium Level 8.5, Phosphorus Level 3.5, Magnesium Level 1.7L Current Medications Medications (Trade) Dose Ordered Sig/Blanca Route PRN Reason Start Time Stop Time Status Last Admin Dose Admin Acetaminophen (Tylenol) 650 mg Q4H PRN ORAL fever 10/15/18 02:15 11/12/18 22:14 Ceftriaxone Sodium 1 gm/ Sodium Chloride 55 ml @ 110 mls/hr DAILY IVPB 10/15/18 09:00 10/21/18 08:59 10/15/18 09:14 Dextrose (Dextrose 50%) 25 ml Q30M PRN IV Hypoglycemia 10/14/18 22:45 11/12/18 22:14 Dextrose (Dextrose 50%) 50 ml Q30M PRN IV Hypoglycemia 10/14/18 22:45 11/12/18 22:14 Heparin Sodium (Porcine) (Heparin 5000 units/ml) 5,000 units EVERY 12 HOURS SUBQ 10/15/18 09:00 11/13/18 08:59 10/15/18 09:14 Insulin Aspart (NovoLOG) BEFORE MEALS AND HS SUBQ 10/15/18 06:30 11/13/18 06:29 Levetiracetam (Keppra) 500 mg Q12HR ORAL 10/15/18 09:00 11/13/18 08:59 10/15/18 09:13 Lorazepam (Ativan 2mg/ml 1ml) 0.5 mg Q4H PRN IV For Anxiety 10/15/18 02:15 10/20/18 22:14 Morphine Sulfate (Morphine Sulfate) 1 mg EVERY 4 HOURS PRN IVP For Pain 10/15/18 01:00 10/20/18 22:14 Ondansetron HCl (Zofran) 4 mg Q6H PRN IVP Nausea & Vomiting 10/15/18 04:15 11/12/18 22:14 Phenytoin (Dilantin) 300 mg BEDTIME ORAL 10/15/18 21:00 11/13/18 20:59 Polyethylene Glycol (Miralax) 17 gm HSPRN PRN ORAL Constipation 10/15/18 22:15 11/12/18 22:14 Potassium Chloride/Sodium Chloride 1,000 ml @ 75 mls/hr [id number] IV 10/14/18 22:45 11/13/18 20:14 10/15/18 03:07 Zolpidem Tartrate (Ambien) 5 mg HSPRN PRN ORAL Insomnia 10/15/18 22:15 10/20/18 22:14 Juliette Bustos MD Oct 15, 2018 12:14
[2018-10-15] MEDS ORDERED: NS 275ml ONE ×2 (12:58→13:24)
--- NOTE | 2018-10-15 13:20 | Infectious Diseases Prog Note ---
Assessment/Plan Assessment/Plan Abx: Ceftriaxone 10/14- Assessment: Breakthrough seizure- Afebrile No leukocytosis -CXR: no acute process Probable UTI -u/a no pyuria, nit +, leuk +1 ; ucx >100k GNR Gram positive bacteremia- real vs contaminant -10/13 Bcx 04/04 GPC clusters developmental delay Dm2 HTN seizure disorder Plan: -Continue empiric Ceftriaxone #2 pending UCx -Start empiric IV Vancomycin pending BCx -f/u cx -Monitor CBC/CMP, temperatures -Bcx x2 Thank you for this consultation. Will continue to follow along with you. Discussed with RN Subjective Allergies: Coded Allergies: VANCOMYCIN (Verified Allergy, Intermediate, Hives, 10/31/15) SWELLING, ITCHING TOMATO (Verified Allergy, Unknown, 08/20/13) Subjective afebrile no leukocytosis gram positive bacteremia Objective Vital Signs Last 24 Hour Vital Signs Date Time Temp Pulse Resp B/P (MAP) Pulse Ox O2 Delivery O2 Flow Rate FiO2 10/15/18 12:00 98.6 89 18 128/80 (96) 97 10/15/18 09:00 97.7 85 19 141/89 (106) 96 10/15/18 09:00 Room Air 10/15/18 04:00 98.4 79 20 120/58 (78) 98 10/15/18 00:00 99.0 102 18 127/85 (99) 99 10/14/18 21:00 Room Air 10/14/18 20:00 99.2 99 20 144/90 (108) 99 10/14/18 19:21 96 10/14/18 16:12 92 10/14/18 16:00 98.2 94 20 127/96 (106) 100 Height (Feet): 5 Height (Inches): 3.00 Weight (Pounds): 109 Objective General Appearance: no apparent distress, alert, non-toxic, other - Short stature, Chronically Ill Head: normocephalic, atraumatic Eyes: bilateral eye normal inspection, bilateral eye PERRL, bilateral eye EOMI ENT: moist mucus membranes - Poor dentition no lingual trauma, gingival hypertrophy Neck: full range of motion, supple, no bony tend Respiratory: chest non-tender, lungs clear, normal breath sounds Cardiovascular : regular rate, rhythm Gastrointestinal: normal inspection, normal bowel sounds, non tender, no mass, non-distended Genitourinary: no CVA tenderness Musculoskeletal: back normal, normal range of motion, no calf tenderness Neurologic: alert, motor strength/tone normal, DTRs symmetric, sensory intact, oriented - X1 Psychiatric: other - Developmental delay but smiling Skin: no rash Microbiology Date/Time Source Procedure Growth Status 10/13/18 21:10 Blood Blood Culture - Preliminary NO GROWTH AFTER 24 HOURS Resulted 10/13/18 21:00 Blood Blood Culture - Preliminary Resulted 10/13/18 21:00 Urine,Clean Catch Urine Culture - Preliminary Gram Negative Bacillus 1 Resulted Laboratory Tests Test 10/15/18 05:45 White Blood Count 5.6 K/UL (4.8-10.8) Red Blood Count 4.42 M/UL (4.20-5.40) Hemoglobin 13.6 G/DL (12.0-16.0) Hematocrit 40.5 % (37.0-47.0) Mean Corpuscular Volume 92 FL (80-99) Mean Corpuscular Hemoglobin 30.8 PG (27.0-31.0) Mean Corpuscular Hemoglobin Concent 33.6 G/DL (32.0-36.0) Red Cell Distribution Width 11.9 % (11.6-14.8) Platelet Count 167 K/UL (150-450) Mean Platelet Volume 8.5 FL (6.5-10.1) Neutrophils (%) (Auto) 62.4 % (45.0-75.0) Lymphocytes (%) (Auto) 25.8 % (20.0-45.0) Monocytes (%) (Auto) 9.6 % (1.0-10.0) Eosinophils (%) (Auto) 1.7 % (0.0-3.0) Basophils (%) (Auto) 0.5 % (0.0-2.0) Sodium Level 139 MMOL/L (136-145) Potassium Level 3.7 MMOL/L (3.5-5.1) Chloride Level 107 MMOL/L (98-107) Carbon Dioxide Level 24 MMOL/L (21-32) Anion Gap 8 mmol/L (5-15) Blood Urea Nitrogen 9 mg/dL (7-18) Creatinine 0.7 MG/DL (0.55-1.30) Estimat Glomerular Filtration Rate > 60 mL/min (>60) Glucose Level 88 MG/DL (74-106) Calcium Level 8.5 MG/DL (8.5-10.1) Phosphorus Level 3.5 MG/DL (2.5-4.9) Magnesium Level 1.7 MG/DL (1.8-2.4) L Current Medications Medications (Trade) Dose Ordered Sig/Blanca Route PRN Reason Start Time Stop Time Status Last Admin Dose Admin Acetaminophen (Tylenol) 650 mg Q4H PRN ORAL fever 10/15/18 02:15 11/12/18 22:14 Ceftriaxone Sodium 1 gm/ Sodium Chloride 55 ml @ 110 mls/hr DAILY IVPB 10/15/18 09:00 10/21/18 08:59 10/15/18 09:14 Dextrose (Dextrose 50%) 25 ml Q30M PRN IV Hypoglycemia 10/14/18 22:45 11/12/18 22:14 Dextrose (Dextrose 50%) 50 ml Q30M PRN IV Hypoglycemia 10/14/18 22:45 11/12/18 22:14 Heparin Sodium (Porcine) (Heparin 5000 units/ml) 5,000 units EVERY 12 HOURS SUBQ 10/15/18 09:00 11/13/18 08:59 10/15/18 09:14 Insulin Aspart (NovoLOG) BEFORE MEALS AND HS SUBQ 10/15/18 06:30 11/13/18 06:29 Levetiracetam (Keppra) 500 mg Q12HR ORAL 10/15/18 09:00 11/13/18 08:59 10/15/18 09:13 Lorazepam (Ativan 2mg/ml 1ml) 0.5 mg Q4H PRN IV For Anxiety 10/15/18 02:15 10/20/18 22:14 Morphine Sulfate (Morphine Sulfate) 1 mg EVERY 4 HOURS PRN IVP For Pain 10/15/18 01:00 10/20/18 22:14 Ondansetron HCl (Zofran) 4 mg Q6H PRN IVP Nausea & Vomiting 10/15/18 04:15 11/12/18 22:14 Phenytoin (Dilantin) 300 mg BEDTIME ORAL 10/15/18 21:00 11/13/18 20:59 Polyethylene Glycol (Miralax) 17 gm HSPRN PRN ORAL Constipation 10/15/18 22:15 11/12/18 22:14 Potassium Chloride/Sodium Chloride 1,000 ml @ 75 mls/hr [id number] IV 10/14/18 22:45 11/13/18 20:14 10/15/18 03:07 Zolpidem Tartrate (Ambien) 5 mg HSPRN PRN ORAL Insomnia 10/15/18 22:15 10/20/18 22:14 Rani Lewis M.D. Oct 15, 2018 13:20
--- NOTE | 2018-10-15 13:40 | NUR ---
NURSE NOTES: Patient discharged around 1330, accompanied by care give and left the floor by wheelchair; IV access and name tag removed upon discharge. Printed material given. Patient doesn't have any belongings. Vitals were stable.
[2018-10-15] MEDS ORDERED: Phenytoin 100mg cap ORAL SCH (21:00)
[2018-10-15] MEDS ORDERED: Zolpidem 5mg tab ORAL PRN (22:15)
[2018-10-15] MEDS ORDERED: Miralax 17gm pkt ORAL PRN (22:15)
--- NOTE | 2018-10-16 11:28 | Discharge Summary ---
Discharge Summary Discharge Summary _ DATE OF ADMISSION: 10/13/2018 DATE OF DISCHARGE: 10/15/2018 ADMITTING MD: Dr. Imtiaz Arroyo CONSULTANTS: Dr. Juliette Lewis BRIEF HOSPITAL COURSE: Patient is a 67-year-old -[place] female, with past medical history significant for seizure disorder, developmental delay, acute encephalopathy in the past, diabetes type 2, hypertension, history of staph epidermidis bacteremia , and high-grade bacteremia, who presented to the hospital after she was noted to have altered mental status. The patient has history of seizure disorder on Dilantin. She was found to be altered than usual and presumably possible grand mal seizure. Paramedics were called in and patient was found to have elevated blood pressure with tachycardia. Patient was subsequently transferred to the hospital for further evaluation. On evaluation at ED, patient was found to be hypotensive. Blood pressure was 78 /48, heart rate 80. She was given IV hydration. Blood work did not show any leukocytosis. Hemoglobin and hematocrit were stable. Sodium 139, potassium 3.3 , chloride 106, bicarb 26, BUN 18 and creatinine 0.9. Glucose was 116. Troponin was negative. Phenytoin level was <0.5. Urinalyses with positive nitrite, +1 leukocyte esterase, 2-4 urine RBC, 2-4 urine WBC. Chest x-ray did not show any acute disease. She was given IV Dilantin. Blood pressure improved. She was then admitted to monitored unit due to syncope, tachycardia and possible breakthrough seizure. She was placed on seizure precautions. She was given frequent neuro checks. She was resumed on prior and Dilantin and Keppra. ID was consulted. She was given empiric ceftriaxone pending urine culture results. Blood culture showed growth of gram-positive cocci 1/. Possible contaminant. She was given vancomycin empirically. There were no seizure episodes. Patient was afebrile with no leukocytosis. Patient was eventually discharged. FINAL DIAGNOSES: Altered mental status possibly due to syncope Subtherapeutic antiseizure medication Severe dehydration Probable UTI Gram-positive bacteremia, possible contaminant Developmental delay Diabetes type 2 Hypertension Seizure disorder stable breakthrough seizure Hypotension DISPOSITION: Patient was discharged home. DISCHARGE MEDICATIONS: Refer to Discharge Medication List. DISCHARGE INSTRUCTIONS: Follow-up in a week. I have been assigned to complete a discharge summary on this account, I was not involved with the patient's management.--ESTHELA Boone Jacqueline Robles NP Oct 16, 2018 11:28
== END 2018-10-15 13:25 | disposition home or self-care (01) | DRG 53 ==
LOC: EDBD 20:44 → EDBEDREQ 21:05 → EMR 21:31 → 2W 21:49 → OBSVTOIN 22:02 → EDBEDREQ 22:33 → 4E 10-14 22:50
DX: G40.419 Other generalized epilepsy and epileptic syndromes, intractable, without status epilepticus (principal); I95.9 Hypotension, unspecified; E86.0 Dehydration; E11.9 Type 2 diabetes mellitus without complications; N39.0 Urinary tract infection, site not specified; I10 Essential (primary) hypertension; F79 Unspecified intellectual disabilities; Z88.1 Allergy status to other antibiotic agents; I25.10 Atherosclerotic heart disease of native coronary artery without angina pectoris
CPT/HCPCS: 36415; 71045; 80048; 80053; 80061; 80185; 80299; 81003; 82550; 82962; 83605; 83690; 83735; 83880; 84100; 84484; 85025; 85610; 85730; 87040; 87086; 87181; 93005; 96361; 96365; 99285; J1165; J1815